=== PATIENT | male | born 1985 | race Caucasian/White ===

== ENCOUNTER 2016-09-11 16:51 | Inpatient (IN) | payer OTHER ==
[~2016-09-11] VITALS: Ht 182.9 cm; Wt 85.0 kg
[2016-09-11 16:55] VITALS: BP 131/84; PULSE 67; RESP 16; O2SAT 99
[2016-09-11] MEDS ORDERED: CLON0.5T PO (16:58)
[2016-09-11] MEDS ORDERED: TRAZ-115 PO (16:58)
[2016-09-11] MEDS ORDERED: LORA-303 PO (17:02)
[2016-09-11] MEDS ORDERED: PROP10TA8 PO (17:09)
--- NOTE | 2016-09-11 18:36 | ED.REPORT ---
HPI-Psychiatric Illness Date of Service Sep 11, 2016 ED Provider: Huang Reilly MD Patient is a 31 year old male with a history of anxiety and prior psychiatric admissions who is brought to the ED by his and father after the patient developed severe anxiety and withdrew from his family members 4-5 days ago. The patient has been nearly nonverbal since yesterday. The patient recently experienced several stressful life events. He worked 14 days straight, 12 hours per day, which ultimately caused the patient to quit his job. The patient was only sleeping 3 hours per day, not sleeping well. His grandfather also recently. His states that the patient is generally depressed and quiet. He intermittently begins shaking and has panic attacks. Patient was seen by his PCP Anna King today, who suggested that he be evaluated for psychiatric admission. See the note from his PCP. His reports a previous episode when he withdrew from Klonopin. The patient had such severe anxiety attack that caused him to be admitted to the hospital. She states that this was 6-7 years ago, for approximately a week. The patient did not have seizures when he withdrew from this medication. He is currently on Klonopin and Ativan. Patient currently has to be reminded to take his medications. The patient had not expressed thoughts of harming himself or others. Patient typically consumes 1-2 beers per day after work, but has not had any alcohol in the past 1-2 weeks. His reports a remote history of marijuana use, but denies any illicit drug use. He is a nonsmoker His reports decreased PO intake. Patient has not recently been on antibiotics to treat an infection. Nursing Notes Stated Complaint: ANXIETY, PSYCH EVAL Chief Complaint: Psychiatric Complaint Nursing Notes Reviewed: Yes (Bromium, Crunchfish) Allergies: Coded Allergies: No Known Allergies (Unverified , 09/11/16) Scheduled PRN Clonazepam (Klonopin) 0.5 Mg Tablet 0.5 MG PO BID PRN PRN For Anxiety Lorazepam (Ativan) 1 Mg Tablet 1 MG PO TID PRN PRN For Anxiety Propranolol HCl (Propranolol HCl) 10 Mg Tablet 10 MG PO TID PRN PRN For Anxiety General Time Seen by MD: 18:14 Chief Complaint Anxious, Bizarre behavior Hx Obtained From: Spouse, Other family... (Father) Arrived By: Walk-in Onset Occurred: 5 days ago Symptom Duration: Since onset Progression Since Onset: Gradually worsening Recent Healthcare: Recent doctor visit Similar Sx Previous: No Risk-Psychiatric Illness Suicide Risk Stratification RF Statements: Risk factors reviewed (not predictive) Past Medical History Past Medical History Anxiety prior psychiatric admission for andxiety due to Klonipin withdrawal (6-7 years ago) Past Surgical History Ankle surgery Smoking History Never Smoker Social History Alcohol Use: 1-3 per day (but currently not drinking alcohol) Drug Use: Denies drug use, THC (remote) Other Social History: Good social support, , Lives with children, Local resident Ambulatory Status Independent Review of Systems Unable to Obtain ROS Mental status (nonverbal, limited) Skin: Reports Diaphoresis Neurologic: Reports: Shaking, Denies: Seizure Psychiatric: Reports: Anxiety, Insomnia, Stress, Denies: Homicidal ideation, Suicidal ideation Physical Exam Physical Exam Notes: Initial Vital Signs Vital Signs (First) Date Time Temp Pulse Resp B/P Pulse Ox O2 Delivery O2 Flow Rate FiO2 09/11/16 16:55 36.4 67 16 131/84 99 Room Air Initial VS: Reviewed, Vital signs normal Head / Eyes: Atraumatic, Normocephalic, PERRL ENT: Conjunctiva normal, No scleral icterus Neck: Supple, Full range of motion Respiratory: Breath sounds normal, Clear to auscultation, No respiratory distress Cardiovascular: Regular rate & rhythm, Heart sounds normal Abdomen / GI: Soft, Non-tender Extremities: No swelling, No tenderness Skin: Warm, Dry, No cyanosis General/Constitutional: Awake, Alert Behavior: Negative: Appears intoxicated Appearance / Presentation: Negative: Intoxicated mute, does not answer questions, converse, or participate with a single word. All history is from his family, who do not indicate drug use. Neurologic: No motor deficits, No sensory deficits, CN II - XII intact Psychiatric: Not suicidal, Not homicidal looks around the room but makes poor eye contact looks at you when directed doess not appear intoxicated or in withdrawal Interpretation & Diagnostics Interpretation & Diagnostics: Urine tox dip: Positive for cocaine Lab Results Interpretation Result Diagram: 09/11/16 1845 09/11/16 1845 Test 09/11/16 18:01 09/11/16 18:45 Hold Urine Received (Received) White Blood Count 13.1th/mm3 (3.8-10.1) Red Blood Count 5.67mil/mm3 (4.40-5.80) Hemoglobin 16.6g/dL (13.8-17.2) Hematocrit 48.5% (41.0-50.0) Mean Corpuscular Volume 85.5fL (81-100) Mean Corpuscular Hemoglobin 29.3pg (27.0-35.0) Mean Corpuscular Hemoglobin Concent 34.2% (32.0-37.0) Red Cell Distribution Width 13.3% (12.3-15.4) Platelet Count 295bil/L (150-400) Neutrophils (%) (Auto) 73.2% (40-74) Lymphocytes (%) (Auto) 19.2% (14-46) Monocytes (%) (Auto) 6.8% (4-12) Eosinophils (%) (Auto) 0.3% (0-5) Basophils (%) (Auto) 0.2% (0-3) Sodium Level 141mEq/L (134-144) Potassium Level 4.1mEq/L (3.5-5.2) Chloride Level 103mEq/L (97-108) Carbon Dioxide Level 20mmol/L (18-29) Blood Urea Nitrogen 15mg/dL (6-20) Creatinine 0.78mg/dL (0.76-1.27) Estimat Glomerular Filtration Rate 124mL/min (>59) Glucose Level 86mg/dL (60-99) Calcium Level 10.3mg/dL (8.5-10.1) Total Bilirubin 0.7mg/dL (0.0-1.2) Aspartate Amino Transf (AST/SGOT) 27U/L (0-50) Alanine Aminotransferase (ALT/SGPT) 27U/L (0-44) Alkaline Phosphatase 82U/L (25-150) Total Protein 7.9g/dL (6.4-8.4) Albumin 4.8g/dL (3.4-5.0) Thyroid Stimulating Hormone (TSH) 1.230uIU/mL (0.450-4.500) Hold Noriega Top Tube Received (Received) Alcohols < 10mg/dL (0-10) Lab Results Interpretation: CBC marginal leukocytosis. CMP normal TSH normal Alcohol negative U tox positive for cocaine, patient and family deny cocaine, patient has no clinical findings of cocaine toxicity Re-Eval/Medical Decision Med Decision/Clinical Course This is a 31-year-old male presents with concern for depression and anxiety that point was come reviewed. He is referred in by primary care physician for hospitalization. The history comes from the patient's partner and family report the patient's been under multiple severe stressors in recent weeks. He has a history of some anxiety, and is on daily Klonopin but felt overwhelmed. He has had poor sleep, increasing anxiety, and today has essentially been mute and not willing to converse. He will nod yes and no, give a thumbs up or thumbs down, but does not converse normally. He denies suicidal or homicidal ideation, and the family does not think there is been any thoughts of self-harm. They are concerned given his worsening symptoms and vitamin that the PCPs recommendation. She will indeed would not medicate at all initially. Give thumbs up. Non- engaged in conversation at all. Does not appear toxic. Borderline catatonic but not truly catatonic as he would look around and participate. He has been eating and drinking. Again something sleeping well. He has no tachycardia, no dilated pupils, no signs of cocaine toxicity-urine tox was reportedly positive. Family patient deny use. The patient was initially kept for an STUDIO ASSOCIATE evaluation, the STUDIO ASSOCIATE is not able see the patient. The patient did become increasingly anxious as requested and received a dose of medication-Ativan in the department which did seem to help. ( Patient did receive some outpatient lorazepam as well to the PCP, but has been adequate to the cause less far. He felt better and started talking even communicating, so initially wanted to go home-but as we were discussing with some benefits and started withdrawal again. After further consideration reviewing options he and particularly his family are not comfortable with discharge numbersr without further STUDIO ASSOCIATE evaluation The symptoms receiving some Benadryl to help with sleep, has been held overnight to facilitate the formal STUDIO ASSOCIATE evaluation further disposition in the morning.) Source of Hx: Old records Re-Evaluation/Progress #1: Time of Eval: 22:57 Patient Status: Condition improved Re-Evaluation/Progress Note: Rechecked the pain. Patient is now speaking, though will still only speak a few sentences. His family is requesting for the patient to be discharged home. STUDIO ASSOCIATE has not yet evaluated the patient. After extensive conversation with his family, a plan was made for him to be discharged home. Re-Evaluation/Progress #2: Time of Eval: 23:26 Re-Evaluation/Progress Note: Patient's family no longer feels safe taking the patient home. He is now refusing to speak again. Patient will stay in the ED overnight and will be evaluated by STUDIO ASSOCIATE in the morning. Differential Diagnosis: Positive: Anxiety, Depression, Negative: Alcohol abuse, Homicidal, Noncompliance-medications, Schizophrenia , Suicidal Counseled Regarding: Diagnosis, Lab results Discharge & Departure Shift Change Sign-Out Discussed Complaint(s): Yes Laboratory Evaluation: Lab evaluation discussed Additonal Information: Awaiting STUDIO ASSOCIATE evaluation Impression: Primary Impression: Anxiety Additional Impressions: Acute situational disturbance Depression Depression Type: major depressive disorder Major depression recurrence: recurrent Active/Remission status: currently active Major depression episode severity: unspecified Qualified Code: F33.9 - Major depressive disorder, recurrent, unspecified Referrals: Anna Kendrick (PCP) Care Transferred to: Dr. Hawk Care Transferred at: 03:00 Amy Attestation Portions of this note were transcribed by Anjana Hay. I, Dr. Reilly personally performed the history, physical exam and medical decision-making; I reviewed and confirmed the accuracy of the information in the transcribed note. Signed by: Amy Iyer, 09/12/2016 0300 copies to: Anna Kendrick Matthew F MD Sep 11, 2016 18:36 Anjana Hay Sep 11, 2016 18:37
[2016-09-11 18:51] VITALS: BP 118/82; PULSE 88; RESP 20; O2SAT 96
[2016-09-11 18:55] LABS: BASOPHILS % (AUTO) 0.2 % (0-3); EOSINOPHILS % (AUTO) 0.3 % (0-5); MONOCYTES % (AUTO) 6.8 % (4-12); Mean Corpuscular Hemoglobin 29.3 pg (27.0-35.0); Mean Corpuscular Volume 85.5 fL (81-100); NEUTROPHILS % (AUTO) 73.2 % (40-74); Platelet Count 295 bil/L (150-400)
[2016-09-11 20:50] VITALS: BP 126/74; PULSE 64; RESP 20; O2SAT 99
[2016-09-11 23:18] VITALS: BP 126/74; PULSE 64; RESP 20; O2SAT 99
[2016-09-11] MEDS ORDERED: diphenhydrAMINE 25 mg Capsule PO ONE (23:30)
[2016-09-12 05:58] VITALS: BP 137/83; PULSE 75; O2SAT 100
[2016-09-12] MEDS ORDERED: LORazepam 1 mg Tablet PO ONE (09:35)
[2016-09-12] MEDS ORDERED: OLANZapine Zydis ODT 5 mg Tablet PO ONE (09:35)
--- NOTE | 2016-09-12 13:02 | NUR ---
DHMP at bedside Family at bedside Pt non verbal still, pt is making some eye contact. Pt appears to be aware of his family
--- NOTE | 2016-09-12 14:16 | DRSVH ---
PROCEDURE: CT BRAIN WITHOUT CONTRAST ([id number]) INDICATIONS: catatonic TECHNIQUE: Noncontrast 4.5 mm thick angled axial sections acquired from the foramen magnum to the vertex, with c oronal reformats. COMPARISON: None. FINDINGS: Image quality: Excellent. CSF spaces: Basal cisterns are patent. No extra-axial fluid collections. Ventricles are normal in size and shape. Brain: No midline shift. No intracranial masses or hemorrhage. Zarate-white matter interface is norm al. Skull and face: Calvarium and visualized facial bones are intact, without suspicious lesions. Sinuses: Visualized sinuses and mastoids are clear. IMPRESSION: No acute intracranial abnormality. Dictated by: Kenneth Cervantes M.D. on 09/12/2016 at 14:14 Approved by: Kenneth Cervantes M.D. on 09/12/2016 at 14:15
--- NOTE | 2016-09-12 14:42 | CONS ---
[address] [address] CONSULTATION REPORT PATIENT: YUSEF SNYDER : 1985 MR#: [id number] ADMIT: 09/11/2016 JOB ID: [id number] DATE OF SERVICE: 09/12/2016 PSYCHIATRIC CONSULTATION: IDENTIFICATION: The patient is a 31-year-old , white male. He has one son, 5. He works for [employer] in [place]. The family lives in [place]. REASON FOR CONSULT: Client coming to the ED highly anxious and mute for the past 48 hours. HISTORY OF PRESENT ILLNESS: The patient presents today for evaluation and treatment of near catatonic behavior. I met with him for a 60 minute evaluation and reviewed course and records kept by [facility]. I also interviewed his father and his . Client's main issue is anxiety. Co-occurring issues are work stress. The current condition is acute and has been developing over the past seven days. At present it is of a moderate intensity manifesting with bizarre symptoms of refusing to speak or write but will nod his head yes or no. He nods yes to having anxiety, no to psychotic review of systems. All the above was made worse by poor sleep and high pressure. Family reports he has been working 14 days in a row at 12 hours a day. He denies substance abuse but his urine tox was positive for cocaine. His and father report that he had a similar episode seven years ago when he stopped benzodiazepines, Ativan and Klonopin and he was also mute requiring inpatient hospitalization. At present, he is on both Klonopin 0.5 b.i.d., Ativan 1 t.i.d., and propranolol 10 t.i.d. He is currently presenting with impaired judgment, severe cognitive impairment, insight and coping. It is very difficult to get a full history both while talking to him in the ED on a gurney and client only able to nod yes or no to my questions. He did deny suicidal ideation, plan or intent. He did deny psychiatric review of systems for trauma, substance abuse or audra. PAST MEDICAL HISTORY: MEDICATIONS: 1. Propranolol 10 t.i.d. 2. Klonopin 0.5 b.i.d. 3. Ativan 1 t.i.d. ALLERGIES: None. ILLNESSES: None. FAMILY MEDICAL HISTORY: Brother after overdosing on methadone after becoming addicted to oxycodone and Suboxone. He has one older sister. The family has a history of non-Hodgkin lymphoma. PAST PSYCHIATRIC HISTORY: Client stated he was admitted one time seven years ago for a similar anxiety episode. He stated this by raising his thumb up or putting his thumb down. PAST PSYCHOSOCIAL HISTORY: Client born him in [place], [place], graduated from high school and attended college. He was in the [employer] for three years with an honorable discharge. HISTORY OF TRAUMA: Client denies. Nonsmoker. Denies drug and alcohol use. Urine tox positive for cocaine. SUICIDAL IDEATION/SUICIDE ATTEMPTS: None. RELATIONSHIP: for the past four years. MORAVIAN: Unknown. LEGAL HISTORY: Unknown. EXAM: Vital signs: 131/84, pulse 67, respirations 16, temperature 96.4. HEENT: Normocephalic. Pupils equal, round, reactive to light and accommodation. Client resting calmly in a hospital bed. LABORATORIES: Liver, electrolytes, thyroid normal. UA normal. UDS positive for cocaine. CBC positive for elevated WBC of 13. MENTAL STATUS: Client neatly dressed, appearing slightly diaphoretic with odd eye contact. Behavior was aloof, detached. Speech was mute. Mood was anxious. Affect was congruent. Thought process: Client is unable to relate a coherent history. He did not appear to be responding to internal stimuli. Thought content: Client is mute but did deny suicidal ideation or auditory hallucinations. Client was oriented to person, place and date. Unable to test memory and attention. Insight and judgment are poor. Impulse control highly contained, yet rigid. Appears to be having a difficult time handling impulses of fear, anger and guilt. Reality testing unable to assess. Competence to handle current stressors is currently being overwhelmed. 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 His urine tox is positive for cocaine although he denies any kind of illicit substance use. He is on two different kinds of benzodiazepines, Klonopin and Ativan for unclear reasons. His family noted a long-term history of generalized anxiety but only one previous episode of presenting as mute. He is currently presenting with impaired judgment, severe cognitive impairment, insight and coping. He is willing to communicate by doing thumbs up or thumbs down but will not talk and will not write. He has a supportive family. They stated he has a good work history and has been a loyal and father and son. They are hoping that we can provide him safety and treatment. DIAGNOSIS: AXIS I 1. Psychosis unspecified. 2. Rule out major depressive disorder. 3. Rule out panic disorder. 4. Rule out substance induced mood disorder, cocaine. AXIS II Defer. AXIS III None. AXIS IV Moderate. AXIS V Current global assessment of functioning equal to 25. PLAN: 1-Recommend ED staff check a CT. Repeat UA. 2-He was evaluated by the [facility] designated mental health professional who did not feel he met criteria for usp. I believe he does meet criteria and him concerned he is not a good puneet voluntary. At this moment both he and his and his father are agreeing to the voluntary admission. I will Admit to the floor on a voluntary basis if he is medically cleared and continues to be willing to engage in treatment (Client did agree to come and made gestures with his thumbs that he would be willing to come as a voluntary patient) 3-Due to the recent history of catatonia and relatively high doses of benzodiazepines, for the time being, I would restart client on Ativan 1 mg t.i.d. Client has already received three doses of Zyprexa at 5 mg per day. Would hold off on neuroleptics today and I will reevaluate him on the psychiatry unit in the morning. Thank you for a very interesting consult. CONOR
--- NOTE | 2016-09-12 16:20 | NUR ---
Nurses Admission Note 31 year old voluntary male certified X 5 days by the A. Patient has had increasing anxiety with a poor appetite and minimal sleep after a period of working 14 days straight 12 hour shifts resulting in him quitting his job. Patient has a history of anxiety disorders and has been prescribed benzodiazepines to control his symptoms. Patient arrived on the unit non- verbal but cooperative by using thumbs up/down in response to admission questions. He denied auditory hallucinations,feelings of self harm. Patient was oriented to the unit, policy and procedures,will be monitored q 15min. checks for safety and support. Addendum: 09/12/16 at 2055 by MARIA FERNANDA CONWAY RN Nurses Note Medication Patient refused all HS medications with an unblinking stare and thumbs down gesture. Will continue to monitor behaviors.
[2016-09-12] MEDS ORDERED: Alum-Mag Hydrox-Simeth 30 mL Suspension PO PRN (18:40)
[2016-09-12] MEDS ORDERED: Magnesium Hydroxide 10 mL Oral Concentration PO PRN (18:40)
[2016-09-12 19:26] VITALS: BP 125/78; PULSE 76; RESP 16
[2016-09-12] MEDS: LORazepam 1 mg Tablet PO SCH ×2 (20:30→20:46)
[2016-09-13] MEDS: LORazepam 1 mg Tablet PO PRN ×2 (00:22→12:29)
[2016-09-13] MEDS: LORazepam 1 mg Tablet PO SCH ×4 (00:22→12:30)
--- NOTE | 2016-09-13 05:42 | NUR ---
Nursing Note [employer] 7pm to 7am Pt started pacing at around med pass time. Came to the med window, nonverbal, staring with fixed gaze, unable to make request known, unresponsive to questions. Pt pointed to the door behind him as if he wanted to leave the unit and becoming increasingly frustrated. Pt eventually went to his room to sleep. He woke up at approx 0230, clearly distraught. Pt offered HS meds which he had declined earlier. Nodded that he would take them, however after they were pulled he declined. Pt appeared to be internally preoccupied. Pt's affect flat, mood neutral. Pt is guarded and suspicious. He is voluntary but is refusing medication. Dr. Knapp aware.
[2016-09-13 11:38] VITALS: BP 138/93; PULSE 108; RESP 16
[2016-09-13] MEDS ORDERED: LORazepam 2 mg Tablet PO ONE (12:50)
--- NOTE | 2016-09-13 14:01 | PCM.HPPSYC ---
Mental Health [facility] Date of Service Sep 13, 2016 Admission Date/Time Sep 12, 2016 at 16:12 Reason for Admission Client coming to the ED highly anxious and mute for the past 48 hours. Admission Status: Voluntary Source of Information: Patient Interview, Chart Review, Observation History of Present Illness The patient presents today for evaluation and treatment of near catatonic behavior. I met with him for a 60 minute evaluation and reviewed course and records kept by Alessio Scales. I also interviewed his father and his . Client's main issue is anxiety. Co-occurring issues are work stress. The current condition is acute and has been developing over the past seven days. At present it is of a moderate intensity manifesting with bizarre symptoms of refusing to speak or write but will nod his head yes or no. He nods yes to having anxiety, no to psychotic review of systems. All the above was made worse by poor sleep and high pressure. Family reports he has been working 14 days in a row at 12 hours a day. He denies substance abuse but his urine tox was positive for cocaine. His and father report that he had a similar episode seven years ago when he stopped benzodiazepines, Ativan and Klonopin and he was also mute requiring inpatient hospitalization. At present, he is on both Klonopin 0.5 b.i.d., Ativan 1 t.i.d., and propranolol 10 t.i.d. He is currently presenting with impaired judgment, severe cognitive impairment, insight and coping. It is very difficult to get a full history both while talking to him in the ED on a gurney and client only able to nod yes or no to my questions. He did deny suicidal ideation, plan or intent. He did deny psychiatric review of systems for trauma, substance abuse or audra. Presenting Symptoms: Mood (Weeks), Depression (Weeks), with Psychotic Features (Days), Anxiety (Months), Panic (Weeks), Generalized (Months) Vegetative Functioning: Sleep (Decreased), Appetite (Decreased), Energy (Normal ) Allergies Coded Allergies: No Known Allergies (Unverified , 09/11/16) Home Medications Scheduled PRN Clonazepam (Klonopin) 0.5 Mg Tablet 0.5 MG PO BID PRN PRN For Anxiety Lorazepam (Ativan) 1 Mg Tablet 1 MG PO TID PRN PRN For Anxiety Propranolol HCl (Propranolol HCl) 10 Mg Tablet 10 MG PO TID PRN PRN For Anxiety Discontinued Medications Trazodone (Trazodone) 50 Mg Tablet Unknown Dose PO HS Psychiatric Treatment History Age at onset: Estimated number of hospitalizations since onset of illness: What medications/treatments have been effective: What medications/treatments have been ineffective: Outpatient Treatment History: Psychological History: Addictions (client has had addiction issues related to benzodiazepines.), Depression Fam Hx Mental Health Disorder: Other (Brother of overdose on methadone) Past Suicide Attempts No Relevant History None Hx non-suicidal Self-Injury No Relevant History Relevant History Details: Hx Violence Towards Other No Past Medical History Past Medical/Surgical History Current and Past Current/Past: No medical problems Problem with Elimination: No Sexually Active: Yes Hx Surgeries: No Past Social History Family: , Children Living Arrangement: with Family Occupation: care coordination manager at [employer] Patient Education Level: Graduated Patient Service: Type of Discharge (Honorable Discharge) Patient Funding Source: Employed Review of Systems Patient unable to cooperate with the review of systems other than to raise his thumb yes or no Constitutional: No: Chills, Fever, Malaise, Other, Sweats, Weakness Cardiovascular: Denies: Chest Pain, Edema, Lt Headedness, Orthopnea, Other, Palpitations, Paroxysmal Noc. Dyspnea Respiratory: Denies: Cough, Hemoptysis, Other, Pleuritic Chest Pain, SOB with Exertion, Shortness of Breath, Sputum, Wheezing Gastrointestinal: Denies: Abdominal Pain, Change in Appetite, Constipation, Diarrhea, Heartburn, Hematochezia, Melena, Nausea, Other, Use of Laxatives, Vomiting Genitourinary: Denies: Anuria, Change in Frequency, Dysuria, Hematuria, Incontinence, Nocturia, Other, Retention Mental Status Exam Vital Signs Vital Signs Date Time Temp Pulse Resp B/P Pulse Ox O2 Delivery O2 Flow Rate FiO2 09/13/16 11:38 36.5 108 16 138/93 Appearance: Neat/well groomed Attitude: Guarded, Uncooperative Behavior: Overtly anxious Affect: Labile Mood: Anxious, Fearful Thought Process/Associations: Other (patient mute today refusing to even do thumbs-up or thumbs down as he had in the ER yesterday) Speech Production: Muter Thought Content: Other (patient mute) Delusions: Paranoid (Endorses) Consciousness: Hyper-vigilant Orientation: Unable to assess Memory: Untestable Estimate Intellectual Function: Unable to assess Insight: Unable to assess Judgement: Unable to assess Result Diagram: 09/11/16184409/11/161844 Mental Health Plan The patient is 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 His urine tox is positive for cocaine although he denies any kind of illicit substance use. He is on two different kinds of benzodiazepines, Klonopin and Ativan for unclear reasons. His family noted a long-term history of generalized anxiety but only one previous episode of presenting as mute. He is currently presenting with impaired judgment, severe cognitive impairment, poor insight and coping. Thursday in the ER he was willing to communicate by doing thumbs up or thumbs down but would not talk and will not write. Today he is refusing to communicate with thumbs up or thumbs down. He appeared highly agitated and anxious. He called 911 from the unit twice in and yelled help into the phone. He became agitated and was pacing on the floor screaming Incoherently an hour after my evaluation. The nurses were able to coax him into taking some Ativan but he is refusing Antipsychotics or scheduled medications. He has a supportive family. They stated he has a good work history and has been a loyal and father and son. They are hoping that we can provide him safety and treatment. I do not believe the patient is a good puneet voluntary. I ask for it county designated mental health evaluation this morning, It was done in the patient is currently on a 72 hour involuntary treatment hold. I asked Dr. Fountain from internal medicine to consult Regarding a medication override. He is going to see the patient this afternoon. [place] DIAGNOSIS: AXIS I 1. Psychosis unspecified. 2. Rule out major depressive disorder. 3. Rule out panic disorder. 4. Rule out substance induced mood disorder, cocaine. AXIS II Defer. AXIS III None. AXIS IV Moderate. AXIS V Current global assessment of functioning equal to 25. Treatments Patient is being provided with a high degree of safety through the structure and active adult engagement. We will focus on developing improved coping skills, reality based thinking and identifying stressors that may have led to current episode. We will attempt to: Integrate into therapeutic groups, milieu and individual therapy. Maintain in a closely monitored and structured unit Provide low-stimulation environment Obtain collateral data to assist in treatment planning Assess degree of lability of affect and impulse control Complete safety plan Decrease frequency of relapse and need for re-hospitalization Establish a consistent sleep pattern Medication effective in stabilization of mood and/or thought process Reduce the risk of imminent harm to self and/or others by providing a safe environment Tolerates medication without side effects Patient will be on the following psychiatric medications: Ativan 2 mg 3 times a day Recommend Seroquel 100 mg at bedtime. Patient currently refusing. Education: Educate patient about recreational drug use as an etiology Address patient's legal status Patient is on a 72 hour involuntary treatment hold. Patient will be given the opportunity to talk to his office machine inspector Thursday and the advertising account manager Thursday Disposition: Luis Pryor MD Sep 13, 2016 14:01
[2016-09-13] MEDS ORDERED: LORazepam 1 mg Tablet PO SCH (14:30)
[2016-09-13] MEDS: LORazepam 2 mg Tablet PO SCH ×2 (15:33→20:28)
--- NOTE | 2016-09-13 16:46 | NUR ---
Nursing Note [id number] S:"Help", "Help", "AHHH", "AHHH!! O: Patient continues to be non verbal. This morning he was barely able to communicate with thumbs up and thumbs down, but using this form of communication rabidly deteriorated throughout the morning. When offered AM Ativan, patient backed away from staff looking fearful. Patient was back and forth from dining room to hallway and would at times, director electrical engineering hallway rocking from foot to foot. At lunch time, patient was sitting in dining room and yelled out loudly-effectively scattering fellow patients. Patient came into the med room and was offered anti anxiety medications. Patient drank water, but would not take meds. Patient sat on chair and kept reaching for/pulling hand back from phone. Staff offered to call his family. Patients father was contacted, patient listened for a minute, extended phone almost back to precision agriculture specialist, then to ear, repeat, repeat, finally hanging up phone. Patient stood, sat, stood, becoming more agitated. Picked up phone, dialing 911 and yelled, "Help", "Help",then " Ahhh, over and over. Patient finally took medications and sat on roller chair. Patient unable to follow directions to room. Patient rolled to room on chair and transferred self to bed. Stood and started toward door several times, but was redirected to bed. Sat on floor for a time, then back to bed and eventually laid down and finally slept. A: Patient anxious, unable to communicate verbally other than brief outburst to 911. Flat affect. Unpredictable and possibly volatile. P: Monitor for response to treatment. Q 15 min checks for safety. Follow plan of care. Addendum: 09/13/16 at 1740 by CYNDI KHALIL RN Patient verbally said "thank you" to [facility] for dinner.
--- NOTE | 2016-09-13 17:03 | NUR ---
Underground Roof Bolter./ c.m. S./O.: tried to meet with pt. during the day. Pt. became agitated late morning and he was screaming on the top of his lungs. It was hard to calm pt. down. Security was called because pt. wasn't cooperating and peers were afraid of pt. Pt. was in bed after his last screaming episode unresponsive. Later after lunch DCR came and detained pt. for 72 hrs as GD. Pt.'s father and pt.'s came to visit pt. in the middle of afternoon and pt. got up and went to [email or web address] room with them. Justice [employer] met with pt. and his family in that room. Pt. confirmed by his hand gesture that he felt very anxious. He refused to talk but used his thumb to answer on a few questions. Pt. is aware now about his RIA status. Family was upset about it but understood a reason for that. Pt.'s father reassured pt. that he would have his own private crnp. Justice Of [employer] Peace explained to family RIA rules and encouraged pt. to cooperate with his treatment here. Pt. agreed to take meds, to ask for help and to write his requests or answers if necessary. A.: pt. is isolative, uncooperative, mute, has a flat affect, looks internally preoccupied and fearful. P.: monitor behavior, encourage pt. to take meds and to communicate; follow care plan.
--- NOTE | 2016-09-13 17:38 | NUR ---
Observations 0700 to 1900 Pt was not able to maintain behavioral control during the shift. During the morning pt was trembling, pacing, non verbal, visibly agitated. Pt paced hallways and sat on floor for morning. Pt ate breakfast but could not interact with anybody. Pt sat down for lunch and without a known stimuli pt screamed unintelligibly. Other pts were frightened. Staff ushered pt toward med room where pt began to scream repeatedly. Staff attempted to get pts father on the phone to help calmed down pt, but pt called 911 on screamed 'help.' Staff took pt to room and stayed with him until he laid down in bed. Pt fell asleep in afternoon, and woke up when father and came to visit. Pt remained nonverbal but seemed noticeably less agitated after waking up. Pt made eye contact and said 'thank you' to designer writer at dinner time. Pt ate 90-100% of breakfast and dinner and 20% of lunch. Pt was observed every 15 minutes as ordered.
--- NOTE | 2016-09-14 05:07 | NUR ---
Lead Web Application Developer 7pm to 7am Pt was calm at start of shift and was reported to have had a good visit with family. Pt remained in control of behavior for duration of shift. Came to med window and made a sleeping hand gesture and nodded acknowledging he wanted his night time meds. Pt walked away from the med window multiple times before taking his medication po with much ambivalence. Pt reached for the meds and then pulled hand back, and looked up at the ceiling as if he was listening to someone. When asked if pt was hearing voices he knotted his head yes. Pt eventually took meds with much prompting. He took scheduled HS meds along with Inderal 2omg prn for anxiety with good relief. Pt slept through the night uninterrupted. Monitored q 15 minutes for safety, location and accountability.
[2016-09-14] MEDS: LORazepam 2 mg Tablet PO SCH ×3 (07:18→20:32)
[2016-09-14 08:16] VITALS: BP 158/104; PULSE 112; RESP 18
--- NOTE | 2016-09-14 10:50 | PCM.PNPSY ---
Subjective Date of Service Sep 14, 2016 Subjective I spent 30 minutes both reviewing his treatment plan and providing supportive and educational psychotherapy. I spent less than 50% of the time counseling the patient as the patient was only able to respond with turning his thumbs up or down. He is been a nearly completely mute except for 24 hours ago when he called 911 twice from the unit and said help. Then he did a primal scream before staff was able to redirect him. I reviewed the treatment plan with the patient and discussed options available including the potential risks, benefits and side effects. Slade reports by raising his thumb up that he is not in agreement with taking Ativan and Seroquel for his condition. The Staff reports that he has been active and but is not able to participate well in one-to-one unit and group activities. He slept 8 hours. He appeared markedly less agitated today and more alert. He denies medication side effects. Patient was not able to identify his medications or what they were used to treat. Current Medications Current Medications Lorazepam 1 mg Q4 PRN PO Last administered on 09/13/16 12:29; Admin Dose 1 MG; Start 09/12/16 at 18:45 Lorazepam 1 mg TID PO Last administered on 09/13/16 12:30; Admin Dose 1 MG; Start 09/12/16 at 20:30; Stop 09/13/16 at 13:13; Status DC Lorazepam 2 mg TID PO Last administered on 09/14/16 07:18; Admin Dose 2 MG; Start 09/13/16 at 14:30 Nicotine 1 patch DAILY TOPICAL Last administered on 09/14/16 07:19; Admin Dose 1 PATCH; Start 09/13/16 at 18:30 Propranolol HCl 20 mg TID PRN PO Last administered on 09/13/16 20:28; Admin Dose 20 MG; Start 09/13/16 at 13:25 Quetiapine Fumarate 100 mg HS PO Last administered on 09/13/16 20:28; Admin Dose 100 MG; Start 09/13/16 at 21:00 Mental Status Exam Vital Signs Vital Signs Date Time Temp Pulse Resp B/P Pulse Ox O2 Delivery O2 Flow Rate FiO2 09/14/16 08:16 36.5 112 18 158/104 Appearance: Neat/well groomed Attitude: Guarded, Uncooperative Behavior: Overtly anxious Affect: Blunted, Flat Mood: Anxious Thought Process/Associations: Other (patient mute today but will gesture with thumbs-up or thumbs down as he had in the ER ) Speech Production: Muter Thought Content: Other (patient mute) Delusions: Paranoid (Endorses) Consciousness: Hyper-vigilant Orientation: Unable to assess Memory: Untestable Estimate Intellectual Function: Unable to assess Insight: Unable to assess Judgement: Unable to assess Result Diagram: 09/11/16184409/11/161844 Mental Health Plan The patient is 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 His urine tox is positive for cocaine although he denies any kind of illicit substance use. He is on two different kinds of benzodiazepines, Klonopin and Ativan for unclear reasons. His family noted a long-term history of generalized anxiety but only one previous episode of presenting as mute. He is currently presenting with impaired judgment, severe cognitive impairment, poor insight and coping. Thursday in the ER he was willing to communicate by doing thumbs up or thumbs down but would not talk and will not write. Today he is refusing to communicate with thumbs up or thumbs down. He appeared highly agitated and anxious. He called 911 from the unit twice in and yelled help into the phone. He became agitated and was pacing on the floor screaming Incoherently an hour after my evaluation. The nurses were able to coax him into taking some Ativan but he is refusing Antipsychotics or scheduled medications. He has a supportive family. They stated he has a good work history and has been a loyal and father and son. They are hoping that we can provide him safety and treatment. I do not believe the patient is a good puneet voluntary. I ask for it county designated mental health evaluation this morning, It was done in the patient is currently on a 72 hour involuntary treatment hold. I asked Dr. Fountain from internal medicine to consult Regarding a medication override. He is going to see the patient this afternoon. Slade was willing to take Seroquel last night and continues on relatively high doses of Ativan. He seems markedly improved in terms of Mood stability. He remains mute to any type of conversation or attempts to engage. [place] DIAGNOSIS: AXIS I 1. Psychosis unspecified. 2. Rule out major depressive disorder. 3. Rule out panic disorder. 4. Rule out substance induced mood disorder, cocaine. AXIS II Defer. AXIS III None. AXIS IV Moderate. AXIS V Current global assessment of functioning equal to 25. Treatments Patient is being provided with a high degree of safety through the structure and active adult engagement. We will focus on developing improved coping skills, reality based thinking and identifying stressors that may have led to current episode. We will attempt to: Integrate into therapeutic groups, milieu and individual therapy. Maintain in a closely monitored and structured unit Provide low-stimulation environment Obtain collateral data to assist in treatment planning Assess degree of lability of affect and impulse control Complete safety plan Decrease frequency of relapse and need for re-hospitalization Establish a consistent sleep pattern Medication effective in stabilization of mood and/or thought process Reduce the risk of imminent harm to self and/or others by providing a safe environment Tolerates medication without side effects Patient will be on the following psychiatric medications: Ativan 2 mg 3 times a day Recommend Seroquel 100 mg at bedtime. Patient currently refusing. Education: Educate patient about recreational drug use as an etiology Address patient's legal status Patient is on a 72 hour involuntary treatment hold. Patient will be given the opportunity to talk to his teller manager Thursday and the process manager Thursday Disposition: Luis Pryor MD Sep 14, 2016 10:50
--- NOTE | 2016-09-14 11:57 | NUR ---
Agency Director./ c.m. S./O.: met with pt. to work on his Treatment plan and goals. Pt. was sitting in a TV area. He was mute. He was able to make a gesture with his hand and a nod with his head as an answer on quality analyst/technical writer's question. He confirmed having a lot of stress recently. He confirmed having a lot of anxiety. He felt safe here. He denied SI/HI. He had a difficult time signing his Treatment plan and goals. It was hard for him to make his mind. Chief Architect told pt. that his father called and wanted to know about pt.'s progress. Chief Architect didn't want to speak with pt.'s father without pt. permission to do so. Pt. confirmed that quality analyst/technical writer could tell his father about signing his paper. A.: pt. is cooperative, mute, has a flat affect and looks anxious. He has a hard time making decisions. He looks internally preoccupied. P.: monitor behavior, continue encouraging pt. to take meds, follow care plan.
[2016-09-14] MEDS: LORazepam 1 mg Tablet PO PRN (12:24)
--- NOTE | 2016-09-14 13:06 | NUR ---
Nursing Note [id number] Behavior S/O: Pt pleasant with staff & peers. Pt out in milieu. Pt attended community meeting in the morning. Pt continues to be non-verbal, making only gestures to indicate how he is doing. No verbal communication with staff or peers. When approached with questions about how he feels, he gives a thumbs up. Pt took am medications hesitantly. Pt has good appetite. B/P elevated at 158/104. A: Pt unable/unwilling to communicate inner emotions with staff. P: Provide supportive environment. Monitor medications & effects. Addendum: 09/14/16 at 1424 by MARLEEN OCONNOR RN Pt seen in room & piano room holding his hands in front of him mouthing words without sound. Appears to be responding to internal stimuli.
--- NOTE | 2016-09-14 18:05 | NUR ---
Observations 0900 to 2130 Pt affect and mood was flat, guarded, mute and anxious. Pt eye contact was ok and speech was poor. Pt continues to not say much, but he has talked a little bit today. Pt was out of his room most of the shift. Pt and Dad came to visit and it appeared to go well. Pt ate 100% of his meals. Pt ate snack. Pt maintained behavior throughout the shift. Pt attended group and unit activities. Pt attended community meeting and set daily goal. Pt was minimally social with staff and select peers. Pt was pleasant, polite and cooperative. Pt did some posturing in the hallway at times. Pt stood staring at ching and pictures in hallway. Pt was observed every 15 minutes throughout the shift as ordered.
--- NOTE | 2016-09-14 21:49 | NUR ---
Nurses Note Evening Patient has been more interactive today than yesterday. His eye contact is improved with periods of spontaneous affect with verbal one word responses. He has accepted his medications but remains hesitant requiring quiet encouragement and time at bedtime. He was observed speaking with peers with one word responses and has been in the day room for meals and TV. Patient has continued with periods of standing in the hallway staring at the wall as if responding to internal stimuli. Will assess medication efficacy,alert to side effects and maintain q 15min. checks for safety and support. Addendum: 09/14/16 at 2155 by MARIA FERNANDA CONWAY RN Amended: Links added.
--- NOTE | 2016-09-15 01:27 | NUR ---
Observations 1900 to 0700 Pt affect is flat. Pt spent the evening out i the DR but isolated to himself for the most part. pt did attend wrap up group. Pt went to bed after group and has remained there ever since but has not yet fallen asleep. Pt was observed every 15 minutes through the night as directed.
[2016-09-15] MEDS: LORazepam 1 mg Tablet PO PRN ×2 (01:43→12:58)
--- NOTE | 2016-09-15 06:06 | NUR ---
Nursing Note Road Marker 11pm to 7am Pt awake at 0030, sitting on bed looking out of the window where he remained for several hours. Pt seemed internally preoccupied but when asked if hearing voices he shook his head no. He remains mute expressing himself with head nods and thumbs up/down. Seen rubbing his neck for an extended period of time but denies pain. Offered pt ativan prn. reached for meds and water but drank water and handed meds back. Later came up to med window and asked for " My medication". Pt given ativan 1mg, inderal 20mg with good relief. Pt back to sleep at 0330 and remained asleep the rest of the night. Addendum: 09/15/16 at 0620 by JOJO GARCIA RN Amended: Links added.
[2016-09-15] MEDS: LORazepam 2 mg Tablet PO SCH ×4 (08:43→20:43)
[2016-09-15 10:10] VITALS: BP 151/104; PULSE 108; RESP 16
--- NOTE | 2016-09-15 13:07 | NUR ---
Nursing Note [id number] Behavior, Mood S/O: Pt ate 60% of breakfast & 75% of lunch. B/P 151/104. Pt rated anxiety at a "5" on a scale of 1-10/10 the worst. He appears very anxious (i.e. eyes are looking around furtively, pt having difficulty focusing, pt sighing). Ativan 1 mg given at 1300. Pt unable/unwilling to vocalize answers to anyone. When asked if he was doing better or worse than yesterday, he gave me a thumbs up. Pt seen mouthing words to himself. A: Pt appears unchanged from yesterday even though he gestures that he is feeling better. P: Provide supportive environment. Monitor medications & effects.
--- NOTE | 2016-09-15 16:50 | PCM.PNPSY ---
Subjective Date of Service Sep 15, 2016 Subjective The patient did not speak to the treatment team using words but used hand signs , up, down, and in the middle to express his mood and response to questions. He was unable to say why he was unable to speak but was noted to deep breath deliberately several times during the interview as well as looking towards the ceiling with his eyes fluttering. He denied feeling that others were controlling his thoughts or are preventing him from speaking. He denied hallucinations. Denied suicidal or homicidal thoughts. He denied thought control or ideas of reference. The patient was agreeable to increasing quetiapine and on follow-up noted that he felt more relaxed. He also was agreeable to increasing his evening quetiapine dose. He denied any side effects from medications or medical issues. Sleep: 4+ hours per staff Appetite: Eating meals Suicidal and homicidal ideation: Denies Auditory hallucinations/Visual hallucinations: Denies Other Psychotic Symptoms: As above and mute Anxiety: Unable to assess Depression: Unable to assess Current Medications Current Medications Nicotine 1 patch DAILY TOPICAL Last administered on 09/15/16 08:47; Admin Dose 1 PATCH; Start 09/13/16 at 18:30 Quetiapine Fumarate 100 mg DAILY PO Last administered on 09/15/16 14:02; Admin Dose 100 MG; Start 09/15/16 at 13:25 Quetiapine Fumarate 100 mg HS PO Last administered on 09/14/16 20:32; Admin Dose 100 MG; Start 09/13/16 at 21:00; Stop 09/15/16 at 15:11; Status DC Mental Status Exam Vital Signs Vital Signs Date Time Temp Pulse Resp B/P Pulse Ox O2 Delivery O2 Flow Rate FiO2 09/15/16 10:10 36.3 108 16 151/104 Appearance: Neat/well groomed Attitude: Guarded, Uncooperative Behavior: Overtly anxious Affect: Blunted, Flat Mood: Anxious Thought Process/Associations: Other (patient mute today but will gesture with thumbs-up or thumbs down or in the middle) Speech Production: Muter Thought Content: Other (patient mute) Danger to Self/Suicidal Ideati: None Danger to Others: None Delusions: Paranoid (Appears to be as unable to say why he cannot speak and appears quite guarded.) Hallucinations: Auditory (Denies), Visual (Denies) Consciousness: Hyper-vigilant Orientation: Unable to assess Memory: Untestable Estimate Intellectual Function: Unable to assess Insight: Unable to assess Judgement: Unable to assess Result Diagram: 09/11/16184409/11/161844 Mental Health Plan The patient is 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 His urine tox wa positive for cocaine although he denies any kind of illicit substance use. He is on two different kinds of benzodiazepines, Klonopin and Ativan for unclear reasons. His family noted a long-term history of generalized anxiety but only one previous episode of presenting as mute. He is currently presenting with impaired judgment, severe cognitive impairment, poor insight and coping. Thursday in the ER he was willing to communicate by doing thumbs up or thumbs down but would not talk nor write. Following admission , he began refusing to communicate with thumbs up or thumbs down. He appeared highly agitated and anxious and had called 911 from the unit twice and yelled help into the phone. He became agitated and was pacing on the floor screaming incoherently, and was refusing medications and was subsequently detained. Since being detained, he has been medication adherence and is denying side effects to current medications. The patient appears to be responding to some form of internal stimuli and appears religiously preoccupied. He is agreeable to titration of medication. [place] AXIS I 1. Psychosis unspecified. 2. Rule out major depressive disorder. 3. Rule out panic disorder. 4. Rule out substance induced mood disorder, cocaine. 5. Cocaine use disorder AXIS II Defer. AXIS III None. AXIS IV Moderate. AXIS V Current global assessment of functioning equal to 25. Treatments 1. The patient is admitted to the inpatient unit and will be provided a safe and secure environment. 2. The patient is denying current active suicidality and is not in need of a one-to-one at this time. 3. The patient is encouraged to participate with group and milieu activities. 4. The patient will be seen by the treatment team on a daily basis to assess symptoms, side effects and response to treatment. 5. Quetiapine will be increased to 100 mg daily and 200 mg at bedtime. 6. The patient may benefit from an antidepressant though it is difficult to assess at this time. 7. Once stabilized on quetiapine will need to taper his benzodiazepine use. 8. Anticipated length of stay is 7-10 days. Marbin Walsh MD Sep 15, 2016 16:50
--- NOTE | 2016-09-15 17:55 | NUR ---
Observations 0900 to 0 Pt affect and mood continues to be flat, guarded, mute and anxious. Pt eye contact was ok and speech was poor. Pt continues to not say much, lips junior quiver but doesn't say anything. Pt will communicate by making hand gestures. Pt was out of his room most of the shift but is currently taking a nap. Pt Dad came to visit and it appeared to go well. Pt attended meals ate 100% of his meals. Pt ate snack. Pt maintained behavior throughout the shift. Pt attended community meeting and set daily goal, to have a good day. Pt was pleasant, polite and cooperative. Pt walked hallway and did some posturing in the hallway at times. Pt stood staring at ching and pictures in hallway. Pt was observed every 15 minutes throughout the shift as ordered.
--- NOTE | 2016-09-15 18:59 | NUR ---
[id number]. S/O: Pt continuing to be non verbal and respond with yes or no hand gestures to staff, offered pen and paper for more elaboration refused offer, pt took 1mg of ativan at 1300 and seroquel 100mg at 1400, refused offered 1420 sheduled 2 mg ativan, then did come to med rm to ask for this med, the changed mind when offered, indicated he was going to go to sleep and returned to bed noted to be sleeping. Pt noted to lie in bed with head covered, would remove covers when asked. Pt out to eat meals not interacting with others. Pt visited by father and then also spouse and was not verbal with them. Continued hand gestures. P:CNCP Addendum: 09/15/16 at 2128 by FAVIO PHILLIPS RN Pt took sheduled seroquel 200mg and checked for cheeking this med after refused sheduled 2 mg of ativan and threw it in trash. Pt appeared to have taken the seroquel appropriately and would not explain reasons for refusal used same downward pointing thumb gesture.
--- NOTE | 2016-09-16 03:12 | NUR ---
Observations 1900 to 0700 Pt affect is flat. Pt spent the evening out in the DR but isolated to himself for the most part. Pt had two visitors last night. Pt was observed on a few occasions talking to himself in his room. Pt first appeared asleep at 01:45 and was observed every 15 minutes through the night as directed.
--- NOTE | 2016-09-16 04:27 | NUR ---
Sleep 11p-7a Pt restless pacing between his room and the hallway. Avoidant eye contact looking away and at the ground when passing by staff. He did come to the nursing station and rubbed his stomach and just stated the word "Ativan" then stood in front of the med room door. This nurse took his action to mean he wanted to be given Ativan. Ativan offered to patient which he took out of the med cup and then placed on the ledge of the door. He then proceeded to walk away and ignored this nurse when calling his name. Offered prn Ativan wasted with no further requests for medication made by the patient. Pt noted to be asleep by 0145 with no further distress or awakening noted per protocol checks. Total sleep this shift over 3 hours. Will continue to monitor behavior, mood and sleep cycle through the night. Addendum: 09/16/16 at 0444 by DAYSI TENORIO RN [facility] noted that during checks patient had been rapidly talking to himself in his room but would stop as soon as staff was noticed by the patient. The [facility]HA reported that it almost seemed like the patient was praying and heard to be making statements to self about relationships. Addendum: 09/16/16 at 0553 by DAYSI TENORIO RN Pt awoke at 0500 appearing tremulous and diaphoretic. VS taken BP144/99, P 106, afebrile, blood glucose 217. Pt not a reported diabetic. [facility] Pt requested Klonopin. Pt received Haldol 10mg po prn, Klonopin 0.5mg po prn and Tylenol 650mg po prn @ 0514. He is currently resting on bed but not sleeping. He drank water and ate a light yogurt.
[2016-09-16] MEDS: LORazepam 2 mg Tablet PO SCH (09:55)
[2016-09-16] MEDS: LORazepam 1 mg Tablet PO SCH ×2 (14:48→15:20)
[2016-09-16] MEDS: LORazepam 1 mg Tablet PO PRN (15:17)
--- NOTE | 2016-09-16 15:18 | NUR ---
Nurses Note PRN Patient refused his scheduled Ativan 1.5mg at 1430 but with intermittent encouragement accepted Ativan 1mg at 1517,will assess response. Patient was covered up in his bed nonverbal but eventually walked to the medication room and "asked" for the medication.
--- NOTE | 2016-09-16 15:18 | NUR ---
Data Communications Technician./ c.m. S./O.: met with pt. and MD together in pt.'s room. He was in bed with his eyes closed. He continued responding in a hand gesture occasionally but not all the time. He was closing his eyes very often without answering on MD questions. He agreed to change medications. He denied SI/HI. He was in and out of his room but he was keeping mostly to himself. Pt.'s called and wanted to get an update on pt.'s condition. Pt. refused to sign RUBIO for his family members ( and his father). Retail Department Supervisor called pt.'s and informed her about legal procedure and inability to share information without pt.'s consent. A.: pt. is isolative, selectively mute, quiet, has a flat affect and a poor eye contact. P.: monitor behavior, encourage pt. to speak, court tomorrow; follow care plan.
--- NOTE | 2016-09-16 18:19 | NUR ---
NURS Note [id number] Mood: Unable to assess. Pt unresponsive to questioning. Affect: Restricted. Fluctuates between frustrated, fearful, and vacant. Behavior: Selectively mute. Pt alternated between laying in bed with eyes closed or blanket over head and up pacing halls. In the AM pt offered one word/short phrase verbal responses to writers questions. Afternoon, the pt no longer offered verbal responses to magnetic tape typewriter operator and used thumbs up/thumbs down to communicate. Thought Content/Process: Unable to assess. PRN/NURS Notes: Pt initially refused scheduled 0830 Seroquel and Ativan, with encouragement pt took meds into mouth, spit them back into the cup with water, the swallowed the regurgitated water with pills. Pt refused 1230 olanzapine 5 mg. Pt initially refused 1430 Ativan 1.5 mg. Three RNs offered medication and pt refused all three. After magnetic tape typewriter operator wasted medication, pt came to med room seeking Ativan, given 1 mg PO PRN. Pt signed RUBIO for father, , and DUMP GRADER. Initially declined to sign ROIs for and DUMP GRADER, only agreed to sign when father was present. Pt has agreed to take medications.
--- NOTE | 2016-09-16 20:14 | PCM.PNPSY ---
Subjective Date of Service Sep 16, 2016 Subjective The patient did not speak to the treatment team using words but used some signs down and in the middle to express his mood and response to questions. The patient responded less to questions today than yesterday and reported that he felt that the injections of olanzapine were more helpful than quetiapine. He indicated with a thumbs up, switching to olanzapine. He did not indicate any side effects or medical issues. The patient declined two doses of lorazepam and appeared to begin to experience early withdrawal. Sleep: 3+ hours per staff Appetite: Eating meals Suicidal and homicidal ideation: Denies Auditory hallucinations/Visual hallucinations: Denies Other Psychotic Symptoms: minimally communicative Anxiety: Unable to assess Depression: Unable to assess Current Medications Current Medications Quetiapine Fumarate 100 mg DAILY PO Last administered on 09/16/16 09:55; Admin Dose 100 MG; Start 09/15/16 at 13:25; Stop 09/16/16 at 12:29; Status DC Quetiapine Fumarate 200 mg HS PO Last administered on 09/15/16 20:43; Admin Dose 200 MG; Start 09/15/16 at 21:00; Stop 09/16/16 at 12:29; Status DC Mental Status Exam Appearance: Neat/well groomed Attitude: Guarded, Uncooperative Behavior: Overtly anxious Affect: Flat Mood: Anxious Thought Process/Associations: Other (patient mute today but will gesture with thumbs-up or thumbs down or in the middle for some questions) Speech Production: Muter Thought Content: Other (patient mute) Danger to Self/Suicidal Ideati: None Danger to Others: None Delusions: Paranoid (Appears to be as unable to say why he cannot speak and appears quite guarded.) Hallucinations: Auditory (Denies), Visual (Denies) Consciousness: Hyper-vigilant Orientation: Unable to assess Memory: Untestable Estimate Intellectual Function: Unable to assess Insight: Unable to assess Judgement: Unable to assess Result Diagram: 09/11/16184409/11/161844 Mental Health Plan The patient is 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 His urine tox screen was positive for cocaine although he denied any kind of illicit substance use. He is prescribed clonazepam and lorazepam and his family noted a long-term history of generalized anxiety but only one previous episode of presenting as mute. He was initially admitted as a voluntary patient, but he was noted to be agitated at times and called 911 from the unit twice in and yelled help into the phone. He became agitated and was pacing on the floor screaming incoherently, and was refusing medications and was subsequently detained. He is currently presenting with impaired judgment, severe cognitive impairment, poor insight and coping. Thursday in the ER he was willing to communicate by doing thumbs up or thumbs down but would not talk and would not write. Today he is communicating with thumbs up or thumbs down, but less than yesterday. He has been medication adherent and is denying side effects to current medications but appears to be more sedated and withdrawn. He was agreeable to switching to olanzapine of which he had received two emergent dosages and felt that they were more effective. [place] AXIS I 1. Psychosis unspecified. 2. Rule out major depressive disorder. 3. Rule out panic disorder. 4. Rule out substance induced mood disorder, cocaine. 5. Cocaine use disorder AXIS II Defer. AXIS III None. AXIS IV Moderate. AXIS V Current global assessment of functioning equal to 25. Treatments 1. The patient is admitted to the inpatient unit and will be provided a safe and secure environment. 2. The patient is denying current active suicidality and is not in need of a one-to-one at this time. 3. The patient is encouraged to participate with group and milieu activities. 4. The patient will be seen by the treatment team on a daily basis to assess symptoms, side effects and response to treatment. 5. Quetiapine will be discontinued and he will be switched to olanzapine 5mg twice daily. 6. The patient may benefit from an antidepressant though it is difficult to assess at this time. 7. Will reduce lorazepam to 1.5mg tid. 8. Anticipated length of stay is 7-10 days. Marbin Walsh MD Sep 16, 2016 20:14
--- NOTE | 2016-09-16 20:53 | NUR ---
[facility] Note D-Patient did not attend any structured groups or activities. He ate all meals in the dining room. Patient did not overtly attend to any ALDs but appears moderately groomed. A-Patient started this reporters shift sleeping in his room fully under the blanket. Patient has not spoken the entire shift except to family. Patient has been walking the hallway with a blanket around his shoulders. He did not engage regarding any suicidal thinking, thought disturbances, etc. P-Continue current treatment plan.
--- NOTE | 2016-09-17 05:12 | NUR ---
Nursing Noc Pt had family visiting at the start of shift. His family was putting forth a lot of effort to interact with him. He did sit with them but most of the engagement appeared to be on the families part. Pt continues to remain guarded and avoidant towards staff. He took his scheduled HS medication and retired to his room shortly after his family left for the evening. Pt continues to use hand gestures to communicate. Improved sleep tonight. Pt has remained asleep since 2200 with no noted distress or awakening per protocol checks.
[2016-09-17] MEDS: LORazepam 1 mg Tablet PO SCH ×3 (08:26→20:37)
--- NOTE | 2016-09-17 18:57 | NUR ---
Counseling/Veterinary Surgery Technician: S/O: Patient slept 8+ hours last night per staff. He denies S/I and H/I. He denies auditory an visual hallucinations. Did not get a rating for depression and anxiety. A: Patient is cooperative, guarded, flat affect, anxious, hyper-vigilant, paranoid. P: Follow care plan, coordinate out-patient providers.
--- NOTE | 2016-09-17 21:23 | PCM.PNPSY ---
Subjective Date of Service Sep 17, 2016 Subjective The patient did not speak to the treatment team using words except to report briefly that he was "better" but used hand signs up, down and in the middle to express his mood and response to questions. He also answered questions on 0-10 scale by thumbs up. The patient indicated that he felt olanzapine was more effective. He reported no difficulties with taper of lorazepam. He did not indicate any side effects or medical issues. Patient endorsed some thought blocking. Sleep: 8+ hours per staff Appetite: good Suicidal and homicidal ideation: Denies Auditory hallucinations/Visual hallucinations: Denies Other Psychotic Symptoms: minimally communicative, denies TB/TW/TC/PI/racing thoughts. Anxiety: 07/25 Depression: 06/24 Current Medications Current Medications Lorazepam 1.5 mg TID PO Last administered on 09/17/16 20:37; Admin Dose 1.5 MG; Start 09/16/16 at 14:30 Olanzapine 5 mg BID PO Last administered on 09/17/16 20:37; Admin Dose 5 MG; Start 09/16/16 at 12:30 Mental Status Exam Appearance: Neat/well groomed Attitude: Cooperative, Guarded, Other (uses hand signs) Behavior: Overtly anxious Affect: Flat Mood: Anxious Thought Process/Associations: Other (patient mute today but will gesture with thumbs-up or thumbs down or in the middle for some questions) Speech Production: Muter Speech Rate: Lags/Latency Speech Articulation: Normal Thought Content: Other (patient mute) Danger to Self/Suicidal Ideati: None Danger to Others: None Delusions: Thought Insertion (Denies), Thought Broadcasting (Denies), Thought withdrawal (Denies), Paranoid (Appears to be as unable to say why he cannot speak and appears quite guarded.) Hallucinations: Auditory (Denies), Visual (Denies) Consciousness: Hyper-vigilant Orientation: Unable to assess Memory: Untestable Estimate Intellectual Function: Unable to assess Insight: Unable to assess Judgement: Unable to assess Result Diagram: 09/11/16184409/11/161844 Mental Health Plan The patient is 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 His urine tox screen was positive for cocaine although he denied any kind of illicit substance use. He is prescribed clonazepam and lorazepam and his family noted a long-term history of generalized anxiety but only one previous episode of presenting as mute. He was initially admitted as a voluntary patient, but he was noted to be agitated at times and called 911 from the unit twice in and yelled help into the phone. He became agitated and was pacing on the floor screaming incoherently, and was refusing medications and was subsequently detained. He is currently presenting with impaired judgment, severe cognitive impairment, poor insight and coping. Thursday in the ER he was willing to communicate by doing thumbs up or thumbs down but would not talk and would not write. Today he is communicating with thumbs up or thumbs down, more than yesterday, and used brief single word. He has been medication adherent and is denying side effects to current medications but appears to be more active and engaged. [place] AXIS I 1. Psychosis unspecified. 2. Rule out major depressive disorder. 3. Rule out panic disorder. 4. Rule out substance induced mood disorder, cocaine. 5. Cocaine use disorder AXIS II Defer. AXIS III None. AXIS IV Moderate. AXIS V Current global assessment of functioning equal to 25. Treatments 1. The patient is admitted to the inpatient unit and will be provided a safe and secure environment. 2. The patient is denying current active suicidality and is not in need of a one-to-one at this time. 3. The patient is encouraged to participate with group and milieu activities. 4. The patient will be seen by the treatment team on a daily basis to assess symptoms, side effects and response to treatment. 5. Continue olanzapine 5mg twice daily, consider further titration. 6. The patient may benefit from an antidepressant though it is difficult to assess at this time. 7. Continue lorazepam 1.5mg tid. 8. Continue lorazepam prn, discontinue clonazepam prn. 9. Anticipated length of stay is 7-10 days. Marbin Walsh MD Sep 17, 2016 21:23
--- NOTE | 2016-09-17 23:40 | NUR ---
Nurses Note Evening Patient remained in his room this shift except for a brief visit with his father. Patient remains non-verbal with hand gestures.He continues medication compliant without adverse effects. Patient affect is flat with an odd stare at times without responding to inquiry.Will continue to encourage conversation/interaction and maintain q 15min. checks for safety and support.
--- NOTE | 2016-09-18 05:02 | NUR ---
nursing, nights, 11-7 s/o- has appeared to sleep after 2144 during q 15 minute assessments. a- improved sleep, no apparent distress. p- monitor behavior/emotional state, quality, times and amount of sleep, use and effect of medication. dea
[2016-09-18] MEDS: LORazepam 1 mg Tablet PO SCH ×4 (07:54→20:39)
--- NOTE | 2016-09-18 13:07 | NUR ---
Obs Dayshift Pt has been out in the milieu more today, continues to be mute either walking away from staff when they approach or using hands gestures to respond what he needs. Pt is not participating in groups but did sit in the group room and observed peers w/ no engagement. Pt is refusing/walking away for vitals. Pt appears disheveled, at times confused. Ok/poor ADL's, Good meals - 100%
--- NOTE | 2016-09-18 14:50 | PCM.PNPSY ---
Subjective Date of Service Sep 18, 2016 Subjective The patient was more communicative with the treatment team today and stated that he was "pretty good" today. Most of his answers consisted of either hand motions or, "good." The patient was unable to talk about previous episodes of catatonia or thought blocking or mutism. He stated that his family visit went well. He did endorse ongoing thought blocking but felt that it was better. He did not indicate any side effects or medical issues. Sleep: 8+ hours per staff, "good" Appetite: "good" Suicidal and homicidal ideation: Denies Auditory hallucinations/Visual hallucinations: Denies Other Psychotic Symptoms: Better, but still minimally communicative, denies TB/ TW/TC/PI/racing thoughts. Anxiety: 110 Depression: 0/10 Mental Status Exam Appearance: Neat/well groomed Attitude: Cooperative, Guarded, Other (uses hand signs and one-word responses) Behavior: Overtly anxious Affect: Restricted (occasional smiles) Mood: Anxious Thought Process/Associations: Other (although still mute, using single or brief answers at times.) Speech Production: Paucity (one-word answers with him signs) Speech Rate: Lags/Latency Speech Articulation: Normal Thought Content: Appropriate Danger to Self/Suicidal Ideati: None Danger to Others: None Delusions: Thought Insertion (Denies), Thought Broadcasting (Denies), Thought withdrawal (Denies), Paranoid (appears guarded but denies.) Hallucinations: Auditory (Denies), Visual (Denies) Consciousness: Hyper-vigilant Orientation: Unable to assess Memory: Untestable Estimate Intellectual Function: Average Basis for IQ estimate: Educational history, Employment history Attention/Concentration & Cogn: Impaired Insight: Unable to assess Judgement: Unable to assess Mental Health Plan The patient is 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 His urine tox screen was positive for cocaine although he denied any kind of illicit substance use. He is prescribed clonazepam and lorazepam and his family noted a long-term history of generalized anxiety but only one previous episode of presenting as mute. He was initially admitted as a voluntary patient, but he was noted to be agitated at times and called 911 from the unit twice in and yelled help into the phone. He became agitated and was pacing on the floor screaming incoherently, and was refusing medications and was subsequently detained. The patient, today, was able to answer questions and brief answers and was still using hand signs and gestures for the remainder. He endorsed thought blocking but stated that it was improved. His affect was brighter with occasional smiles. [place] AXIS I 1. Psychosis unspecified. 2. Rule out major depressive disorder. 3. Rule out panic disorder. 4. Rule out substance induced mood disorder, cocaine. 5. Cocaine use disorder AXIS II Defer. AXIS III None. AXIS IV Moderate. AXIS V Current global assessment of functioning equal to 25. Medications Propranolol 20 mg twice daily Olanzapine 5 mg twice daily Lorazepam 1.5 mg 3 times a day Haloperidol 10 mg every 4 hours as needed for agitation or aggression Treatments 1. The patient is admitted to the inpatient unit and will be provided a safe and secure environment. 2. The patient is denying current active suicidality and is not in need of a one-to-one at this time. 3. The patient is encouraged to participate with group and milieu activities. 4. The patient will be seen by the treatment team on a daily basis to assess symptoms, side effects and response to treatment. 5. Increase olanzapine to 5 mg at 8 AM, 2:30 PM, and 10 mg at bedtime. 6. The patient may benefit from an antidepressant though it is difficult to assess at this time. 7. Continue lorazepam 1.5mg tid. 8. Continue lorazepam prn 9. Anticipated length of stay is 7-10 days. Marbin Walsh MD Sep 18, 2016 14:50
--- NOTE | 2016-09-18 17:34 | NUR ---
Nursing Notes [id number] S: Pt is mute today towards staff. He seems to just ignore questions when asked. O: . Pt is limited with interactions of staff. Pt has been out in the dining areas today, he has been coloring today, reading the newspapers and watching TV . Pt not communicating with staff verbally. Pt has been seen interacting with other patients, pt refused to take lorazepam. A: Pt appears to be neat and clean. Pt coming out of his room more today, not making good eye contact but will look towards the ground or out the window when trying to talk to him. He appears to purposely be avoiding staff. P: Monitor for safety and response to treatment. Follow plan of care.
--- NOTE | 2016-09-18 18:54 | NUR ---
Counseling/Instructor Flying: S/O: Patient slept 8+ hours last night per staff. He denies S/I and H/I. He denies auditory an visual hallucinations. Depression is 0/10 and anxiety is 1/10. Patient was somewhat mute during the interview. A: Patient is cooperative, guarded, flat affect, anxious, hyper-vigilant, paranoid. P: Follow care plan, coordinate out-patient providers.
--- NOTE | 2016-09-18 22:37 | NUR ---
Nurses Note Evening Patient remains non-verbal,isolative and internally preoccupied as evidenced by standing in the hallway staring at the ching. He was out of his room for dinner and a visit with his father. He has refused Ativan at 1430 and 2100 accepting the Zyprexa only. No adverse effects have been observed from medication administration. His sleep at night has been within normal limits last night at 8 hours.Will continue to engage,encourage interactions and verbalization of thoughts,concerns and needs.
--- NOTE | 2016-09-19 05:40 | NUR ---
nursing, nights, 11-7 s/o- has appeared to sleep after 2114 during q 15 minute assessments. a- no apparent distress. p- monitor behavior/emotional state, quality, times and amount of sleep, use and effect of medication. dea
[2016-09-19] MEDS: LORazepam 1 mg Tablet PO SCH ×3 (07:44→20:30)
--- NOTE | 2016-09-19 13:45 | NUR ---
NURS Note [id number] Orientation: Unable to assess, pt mute to staff. Mood: Denies (thumbs down) depression, endorses (thumbs down) anxiety, not willing to rate on numbered scale. Affect: Guarded, anxious, agitated. Thought Process/Content: Denies (shook head no) SI, HI. Denies (shook head no) AH, VH. Mute with staff. Behavior: Pt up in common area most of shift. Appeared anxious when approached by advertising writer PRNs/NURS: Pt took scheduled AM lorazepam PO 1 mg., olanzapine 5 mg with hesitation. Addendum: 09/19/16 at 1457 by HO DOHERTY RN Error: 8 hour not 12 hour DAY SHIFT not [id number]
--- NOTE | 2016-09-19 17:41 | NUR ---
[facility] Day Shift Pt maintained behavioral control throughout the shift. Pt affect appears mostly flat, blunt. Pt spends most of the shift resting in his room or watching TV in the dining room. Pt remains non-communicative with staff and peers when active on the unit. Pt attended all meals and ate approx 100% of all meals.
[2016-09-19 17:53] VITALS: BP 158/75; PULSE 85; RESP 18
--- NOTE | 2016-09-19 18:55 | PCM.PNPSY ---
Subjective Date of Service Sep 19, 2016 Subjective The patient reports that he is feeling anxious today. He is still unable to communicate more than with a few brief words. Most of his answers consisted of hand motions. The patient was unable to talk about previous episodes of catatonia or thought blocking or mutism. According to the patient's family is previous episode was approximately 7 years ago with 4 or 5 days of mutism and gradual return to baseline. He reports some racing thoughts today. He also endorses thought blocking. He indicated that he was having some fear regarding the persistence of his symptoms. The patient could not elaborate further due to lack of verbal communication. He did not indicate any side effects or medical issues. Sleep: 9+ hours per staff Appetite: "good" Suicidal and homicidal ideation: Denies Auditory hallucinations/Visual hallucinations: Denies Other Psychotic Symptoms: Better, but still minimally communicative, endorses racing thoughts today but unclear whether these are perseverative thoughts or actual racing thoughts. Anxiety: 11/22, yesterday 06/24 Depression: Current Medications Current Medications Olanzapine 5 mg 1430 PO Last administered on 09/19/16 14:44; Admin Dose 5 MG; Start 09/18/16 at 14:30 Olanzapine 5 mg DAILY PO Last administered on 09/19/16 07:44; Admin Dose 5 MG; Start 09/19/16 at 08:30 Olanzapine 10 mg HS PO Last administered on 09/18/16 20:39; Admin Dose 10 MG; Start 09/18/16 at 21:00 Mental Status Exam Vital Signs Vital Signs Date Time Temp Pulse Resp B/P Pulse Ox O2 Delivery O2 Flow Rate FiO2 09/19/16 17:53 36.2 85 18 158/75 Appearance: Neat/well groomed Attitude: Cooperative, Guarded, Other (uses hand signs and one-word responses) Behavior: Overtly anxious Affect: Restricted Mood: Anxious Thought Process/Associations: Other (although still mute, using single or brief answers at times.) Speech Production: Paucity (one-word answers with him signs) Speech Rate: Lags/Latency Speech Articulation: Normal (though difficult to fully assess) Thought Content: Other (difficult to assess) Danger to Self/Suicidal Ideati: None Danger to Others: None Delusions: Thought Insertion (Denies), Thought Broadcasting (Denies), Thought withdrawal (Denies), Paranoid (appears guarded but denies.) Hallucinations: Auditory (Denies), Visual (Denies) Consciousness: Hyper-vigilant Orientation: Unable to assess Memory: Untestable Estimate Intellectual Function: Average Basis for IQ estimate: Educational history, Employment history Attention/Concentration & Cogn: Impaired Insight: Unable to assess Judgement: Unable to assess Mental Health Plan The patient is 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 His urine tox wa positive for cocaine although he denies any kind of illicit substance use. He is on two different kinds of benzodiazepines, Klonopin and Ativan for unclear reasons. His family noted a long-term history of generalized anxiety but only one previous episode of presenting as mute. He is currently presenting with impaired judgment, severe cognitive impairment, poor insight and coping. Thursday in the ER he was willing to communicate by doing thumbs up or thumbs down but would not talk nor write. Following admission , he began refusing to communicate with thumbs up or thumbs down. He appeared highly agitated and anxious and had called 911 from the unit twice and yelled help into the phone. He became agitated and was pacing on the floor screaming incoherently, and was refusing medications and was subsequently detained. Since being detained, he has been medication adherent and is denying side effects to current medications. The patient appears to be responding to some form of internal stimuli and appears religiously preoccupied. He is agreeable to titration of medication. We discussed that if he does not have a significant response to olanzapine by tomorrow that we should initiate Depakote due to his possible racing thoughts and as an augmentation for the antipsychotic. [place] AXIS I 1. Psychosis unspecified. 2. Rule out bipolar disorder 3. Rule out panic disorder. 4. Rule out substance induced mood disorder, cocaine. 5. Cocaine use disorder AXIS II Defer. AXIS III None. AXIS IV Moderate. AXIS V Current global assessment of functioning equal to 25. Medications Propranolol 20 mg twice daily Olanzapine 5 mg twice daily and 10 mg at bedtime Lorazepam 1.5 mg 3 times a day Haloperidol 10 mg every 4 hours as needed for agitation or aggression Treatments 1. The patient is admitted to the inpatient unit and will be provided a safe and secure environment. 2. The patient is denying current active suicidality and is not in need of a one-to-one at this time. 3. The patient is encouraged to participate with group and milieu activities. 4. The patient will be seen by the treatment team on a daily basis to assess symptoms, side effects and response to treatment. 5. Continue olanzapine 5 mg at 8 AM, 2:30 PM, and 10 mg at bedtime. 6. The patient may benefit from a mood stabilizer such as Depakote and will assess in the morning. 7. Continue lorazepam 1.5mg tid. 8. Continue lorazepam prn 9. Anticipated length of stay is 7-10 days. Marbin Walsh MD Sep 19, 2016 18:55
--- NOTE | 2016-09-19 19:17 | NUR ---
Counseling/Statistical Consultant: S/O: Patient slept 9 hours last night per staff. He denies S/I and H/I. He denies auditory an visual hallucinations. Depression is 0/10 and anxiety is 1/10. Patient was mute during most of the interview. A: Patient is cooperative, guarded, flat affect, anxious, hyper-vigilant, paranoid, mute most of the time. P: Follow care plan, coordinate out-patient providers.
--- NOTE | 2016-09-19 21:00 | NUR ---
NURSING NOTE [id number] Mood: *thumbs up, then thumbs down* Affect: blunted, guarded, blank staring Behavior: watching TV by himself for several hrs from start of shift, asked to take a shower by motioning a shower head w/his hands and then whispering: "shower", remained in there for over an hr until staff encouraged him to come out, which he did, and it did appear that he had showered. His father visited. He asked for his HS meds just before 20:00 and this automatic typewriter inspector explained the medications to him before I removed them from the [employer] and pt. did not protest them. However, when presented w/them in the cup he picked out the Zyprexa and swallowed it, then shook his hands over the cup w/the remaining Ativan, motioning "no". When asked why he was refusing he answered "maybe later". Education provided. Thought processes: pt. did not answer this automatic typewriter inspector when asked any questions re: thought content. He stares blankly at this automatic typewriter inspector then walks away when asked a question.
--- NOTE | 2016-09-20 05:55 | NUR ---
Nursing notes: maintenance supervisor 2nd shift/sleep Patient appears to be sleeping on safety checks during the night, offers no complaints.
[2016-09-20] MEDS: LORazepam 1 mg Tablet PO SCH ×5 (08:03→19:55)
[2016-09-20 08:11] VITALS: BP 145/91; PULSE 67; RESP 16
--- NOTE | 2016-09-20 11:35 | NUR ---
Nursing Day Shift- S/O- Pt. appeared asleep at the start of the day shift. He was awake for breakfast at 0830. He declined to take Ativan at that time with a thumbs down motion. He did take scheduled Zypexa. He was ordered to start Depakote at 1035. Ativan was presented along with Depakote at that time, and again refused. Pt. has remained in the TV area, he appeared tense before Depakote was given, and now sleepy. A- Continues without verbalizations, but with head shakes and nods, or thumb gestures. P- Continue BHTP. Addendum: 09/20/16 at 1453 by HARINI SWAIN RN Pt. refused his 1430 Zyprexa. He would not look at or respond in any way.
--- NOTE | 2016-09-20 13:01 | PCM.PNPSY ---
Subjective Date of Service Sep 20, 2016 Subjective The patient is essentially nonverbal and uses hand signs today. He does report that he feels the medication is somewhat helpful. The patient refused lorazepam 2 and it was discussed with the patient that given his chronic use of this medication, not using it will likely exacerbate his symptoms and potentially cause withdrawal. Despite this, later in the morning he still refused his medication. The patient endorsed auditory hallucinations as well as visual hallucinations outside of the window but would not elaborate. We discussed adding Depakote for augmentation and the patient was agreeable. He did endorse racing thoughts again today. He did not indicate any side effects or medical issues. Sleep: 7.5+ hours per staff Appetite: "So-so" & Suicidal and homicidal ideation: Denies Auditory hallucinations/Visual hallucinations: Endorses both as noted above. Other Psychotic Symptoms: Better, but still minimally communicative, endorses racing thoughts today but unclear whether these are perseverative thoughts or actual racing thoughts. Anxiety: Endorses Depression: Denies Current Medications Current Medications Divalproex Sodium 500 mg BID PO Last administered on 09/20/16 10:36; Admin Dose 500 MG; Start 09/20/16 at 10:20 Olanzapine 5 mg 1430 PO Last administered on 09/19/16 14:44; Admin Dose 5 MG; Start 09/18/16 at 14:30 Olanzapine 5 mg DAILY PO Last administered on 09/20/16 08:00; Admin Dose 5 MG; Start 09/19/16 at 08:30 Olanzapine 10 mg HS PO Last administered on 09/19/16 19:48; Admin Dose 10 MG; Start 09/18/16 at 21:00 Mental Status Exam Vital Signs Vital Signs Date Time Temp Pulse Resp B/P Pulse Ox O2 Delivery O2 Flow Rate FiO2 09/20/16 08:11 36.4 67 16 145/91 Appearance: Unkept (smiling somewhat a body odor) Attitude: Cooperative (partially), Guarded, Other (uses hand signs) Behavior: Overtly anxious Affect: Restricted Mood: Anxious Thought Process/Associations: Other (mute) Speech Production: Paucity (Hand signs) Speech Rate: Lags/Latency Speech Articulation: Other (unable to assess) Thought Content: Other (difficult to assess) Danger to Self/Suicidal Ideati: None Danger to Others: None Delusions: Thought Insertion (Denies), Thought Broadcasting (Denies), Thought withdrawal (Denies), Paranoid (appears guarded but denies.) Hallucinations: Auditory (Endorses), Visual (Endorses) Consciousness: Hyper-vigilant Orientation: Unable to assess Memory: Untestable Estimate Intellectual Function: Average Basis for IQ estimate: Educational history, Employment history Attention/Concentration & Cogn: Impaired Insight: Unable to assess Judgement: Unable to assess Mental Health Plan The patient is 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 His urine tox was positive for cocaine although he denies any kind of illicit substance use. He was on two different kinds of benzodiazepines as an outpatient, Klonopin and Ativan for unclear reasons. His family noted a long-term history of generalized anxiety but only one previous episode of presenting as mute for 4-5 days with gradual resolution. He is currently presenting with impaired judgment, severe cognitive impairment, poor insight and coping. Thursday in the ER he was willing to communicate by doing thumbs up or thumbs down but would not talk nor write. Following admission , he began refusing to communicate with thumbs up or thumbs down. He appeared highly agitated and anxious and had called 911 from the unit twice and yelled help into the phone. He became agitated and was pacing on the floor screaming incoherently, and was refusing medications and was subsequently detained. Since being detained, he has been generally medication adherent and is denying side effects to current medications. He occasionally refuses lorazepam. The patient appears to be responding to some form of internal stimuli and appears religiously preoccupied at times. He has reported auditory and visual hallucinations and given his history 7 years ago of a similar episode and apparent ongoing hallucinations in the interim, the most likely diagnosis is either schizophrenia or schizoaffective disorder bipolar type. He is agreeable to titration of medication. The patient was agreeable to augmentation with Depakote as previously discussed. [place] AXIS I 1. 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 Rule out panic disorder. 4. Rule out cocaine induced mood disorder 5. Cocaine use disorder AXIS II Defer. AXIS III None. AXIS IV Moderate. AXIS V Current global assessment of functioning equal to 25. Medications Propranolol 20 mg twice daily Olanzapine 5 mg twice daily and 10 mg at bedtime Lorazepam 1.5 mg 3 times a day Haloperidol 10 mg every 4 hours as needed for agitation or aggression Treatments 1. The patient is admitted to the inpatient unit and will be provided a safe and secure environment. 2. The patient is denying current active suicidality and is not in need of a one-to-one at this time. 3. The patient is encouraged to participate with group and milieu activities. 4. The patient will be seen by the treatment team on a daily basis to assess symptoms, side effects and response to treatment. 5. Change olanzapine to 10 mg twice daily 6. Start Depakote 500 mg twice daily 7. Continue lorazepam 1.5mg tid. 8. Continue lorazepam prn 9. Anticipated length of stay is 10-14 days. Marbin Walsh MD Sep 20, 2016 13:01 Marbin Walsh MD Sep 20, 2016 13:01
--- NOTE | 2016-09-20 13:58 | NUR ---
[place] Operator./ c.m. S.:"So-so" O.: met with pt. and MD together. Pt. continued communicating with his hand gestures and head nods. He confirmed that his mood was "so-so" and appetite was "so-so". He had racing thoughts today. He denied SI/HI or paranoid/delusional thoughts. He admitted having AH/VH for some time and he experienced them today also. He couldn't tell if he felt depressed. He didn't respond on a question about anxiety. He slept last night. He agreed to take Depakote in addition to Zyprexa. He is in and out of his room sitting quietly near TV. A.: pt. is cooperative, isolative, quiet, has a flat affect and looks internally preoccupied. Pt. is mute. P.: monitor behavior, encourage pt. to talk and to take all his meds; follow care plan.
--- NOTE | 2016-09-20 19:12 | NUR ---
Observations from [id number] Pt continues to be selectively mute with staff and peers. He was visited by his girlfriend and his father and was noted talking with both of them briefly but pt still refuses to speak with staff and will uses hand gestures if he needs anything. Pt attended community meeting but didn't say anything and ate 100%100% of all meals. Pt has been observed every 15 minutes as directed.
--- NOTE | 2016-09-20 19:50 | NUR ---
NURSING NOTE [id number] Mood: *waves hand back and forth signaling so-so* Affect: guarded, blank staring Behavior: mostly watching TV this shift, approached this commercial real estate underwriter to ask for his scheduled Zyprexa that he had initially refused at 14:30, also visited w/his father. Refused his scheduled HS Ativan but could not offer a reason why. Otherwise med compliant. Thought processes: pt. signals w/thumbs up and thumbs down when asked questions re: thought content and mood; he waved his hand back and forth when asked if he was depressed, endorsed anxiety, and shook head *no* when asked if he was suicidal. He has otherwise uttered very few words to this commercial real estate underwriter this shift.
--- NOTE | 2016-09-21 05:38 | NUR ---
Sleep 11p-7a Pt has slept out in the dining room in a chair tonight with brief intermittent awakening. Total sleep over 5 hours. He remains asleep at this time.
[2016-09-21] MEDS: LORazepam 1 mg Tablet PO SCH ×3 (08:04→20:04)
[2016-09-21] MEDS: OLANZapine Zydis ODT 5 mg Tablet PO PRN (09:50)
--- NOTE | 2016-09-21 11:52 | NUR ---
Nursing Day Shift- S/O- Pt. appeared to be asleep while sitting in a chair in the DR at the start of the day shift. He eat well at meals, took his scheduled medications plus a PRN Zyprexa [address] Walsh at 1030 for reported hallucinations. Pt. has remained mute, and selectively responsive with head or hand gestures. He has remained in the DR, napping on and off, despite being encouraged to rest in his bed. A- Pt. appears to be in no apparent distress. Resistant to speech and sleeping in his bed. No outward signs of attending to auditory or visual hallucinations. P- Cont. to encourage trust. Cont. bHTP. Addendum: 09/21/16 at 1207 by HARINI SWAIN RN Pt. declined scheduled AM Ativan.
--- NOTE | 2016-09-21 13:47 | NUR ---
Life Skills Specialist./ c.m. S.:"So-so." O.: met with pt. and MD together in a private room. Pt. didn't sleep well last night. He slept sitting near TV in a Dining room. He didn't feel safe in his room. He continued having racing thoughts. He denied SI/HI. He has AH that are stronger at night. He admitted having VH also. He rated his anxiety at 8/10 but he couldn't rate depression. He is eating ok. He had a good visit with his family yesterday but he didn't tell his father or his about his condition or what was going on with him inside. He agreed to take a higher dose of Zyprexa as well as PRN. He agreed to use a note with a request for meds. He was in and out of his room mostly spending time in the Dining room near TV. A.: pt. is cooperative, isolative, quiet, selectively mute. He had a high anxiety, looks internally preoccupied and responding on internal stimuli. He has a flat affect and looks unkempt. P.: monitor behavior, provide safety in the unit, encourage pt. to talk, encourage pt. to take meds; follow care plan.
--- NOTE | 2016-09-21 18:28 | PCM.PNPSY ---
Subjective Date of Service Sep 21, 2016 Subjective The patient used hand signs today. He spent the evening sleeping on a chair in the dining room. Through process of elimination, he reported that he did not feel safe in his room at night for unclear reasons. He denied feeling that there were voices in the room or that he was afraid of a presence or being followed in the room. He endorsed racing thoughts. He received an additional dose of olanzapine today which she reported was helpful. The patient's father called today and indicated that during his episode 7 years ago where he was mute for 4-5 days he had ongoing auditory hallucinations as well as reporting that he felt that people were following him at all times. The patient denies side effects from medications. Sleep: 5+ hours Appetite: Okay Suicidal and homicidal ideation: Denies Auditory hallucinations: Endorses Visual hallucinations: Possible Other Psychotic Symptoms: As above Anxiety: 810 Depression: /10 Current Medications Current Medications Divalproex Sodium 500 mg BID PO Last administered on 09/21/16 08:00; Admin Dose 500 MG; Start 09/20/16 at 10:20 Olanzapine 5 mg Q6 PRN PO Last administered on 09/21/16 09:50; Admin Dose 5 MG ; Start 09/21/16 at 09:40 Mental Status Exam Appearance: Unkept Attitude: Cooperative (partially), Guarded, Other (uses hand signs) Behavior: Overtly anxious Affect: Restricted Mood: Anxious Thought Process/Associations: Other (mute) Speech Production: Paucity (Hand signs) Speech Rate: Lags/Latency Speech Articulation: Other (unable to assess) Thought Content: Other (difficult to assess) Danger to Self/Suicidal Ideati: None Danger to Others: None Delusions: Paranoid (Endorses) Hallucinations: Auditory (Endorses), Visual (possible) Consciousness: Hyper-vigilant Orientation: Unable to assess Memory: Untestable Estimate Intellectual Function: Average Basis for IQ estimate: Educational history, Employment history Attention/Concentration & Cogn: Impaired Insight: Unable to assess Judgement: Unable to assess Mental Health Plan The patient is 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 His urine tox was positive for cocaine although he denies any kind of illicit substance use. He was on two different kinds of benzodiazepines as an outpatient, Klonopin and Ativan for unclear reasons. His family noted a long-term history of generalized anxiety but only one previous episode of presenting as mute for 4-5 days with gradual resolution. He is currently presenting with impaired judgment, severe cognitive impairment, poor insight and coping. Thursday in the ER he was willing to communicate by doing thumbs up or thumbs down but would not talk nor write. Following admission , he began refusing to communicate with thumbs up or thumbs down. He appeared highly agitated and anxious and had called 911 from the unit twice and yelled help into the phone. He became agitated and was pacing on the floor screaming incoherently, and was refusing medications and was subsequently detained. Since being detained, he has been generally medication adherent and is denying side effects to current medications. He occasionally refuses lorazepam. The patient appears to be responding to some form of internal stimuli and appears religiously preoccupied at times. He has reported auditory and visual hallucinations and given his history 7 years ago of a similar episode and apparent ongoing hallucinations in the interim, the most likely diagnosis is either schizophrenia or schizoaffective disorder bipolar type. He is agreeable to titration of medication. The patient was agreeable to augmentation with Depakote as previously discussed. The patient's mother reports that his ability to speak to the family has improved considerably and he is using multiple word brief sentences with them. [place] AXIS I 1. 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 Rule out panic disorder. 4. Cocaine use disorder AXIS II Defer. AXIS III None. AXIS IV Moderate. AXIS V Current global assessment of functioning equal to 25. Medications Olanzapine 10 mg twice daily and 5 mg q 6 hour prn paranoia or hallucinations Lorazepam 1.5 mg 3 times a day Divalproex 500 mg twice daily Propranolol 20 mg twice daily Treatments 1. The patient is admitted to the inpatient unit and will be provided a safe and secure environment. 2. The patient is denying current active suicidality and is not in need of a one-to-one at this time. 3. The patient is encouraged to participate with group and milieu activities. 4. The patient will be seen by the treatment team on a daily basis to assess symptoms, side effects and response to treatment. 5. Change olanzapine to 10 mg twice daily 6. Start Depakote 500 mg twice daily, VPA level on 09/24/16. 7. Continue lorazepam 1.5mg tid with PRN. 8. Olanzapine Zydis 5 mg every 6 hours PRN paranoia or auditory hallucinations. Patient given a card with request for an indication for one or the other in order to help the team understand his current symptom profile. 9. Anticipated length of stay is 10-14 days. Marbin Walsh MD Sep 21, 2016 18:28
--- NOTE | 2016-09-21 20:41 | NUR ---
NURSING NOTE [id number] Mood: "I'm in the throes of something here, that's what's really going on" Affect: flat, sarcastic at times Behavior: watching TV, using an ice pack on his back and frequently refilling it, often asking for PRNs for pain and anxiety. Retired to bed early this evening at 19:30. Thought processes: continues to be delusional, grandiose, making some bizarre statements and invoking conspiracy theories. Irritated that he is here and wants to discharge. PRNs Tylenol 15:30 for 9/10 back pain, pt. reported it didn't help w/his pain Flexeril and Temazepam @ HS Addendum: 09/21/16 at 2052 by BRETT MOSER RN ERROR-- CHARTED ON WRONG PT.-- PLEASE DISREGARD
--- NOTE | 2016-09-21 20:56 | NUR ---
CORRECTED-- NURSING NOTE [id number] Mood: *nods* Affect: blunted, restricted Behavior: watched TV, not interacting w/peers, visited w/his , blank staring, delayed responses when asked questions and his answers are mostly in hand gestures (thumbs up/down or waving). Refused his scheduled HS Ativan and Ambien. Could not offer reason why to this handbook writer. Thought processes: difficult to assess as he is for the most part not verbally communicative w/this handbook writer. He stared blankly at this handbook writer when asked if he had AH/VH and if he was nervous or fearful of anything on this unit.
--- NOTE | 2016-09-22 06:19 | NUR ---
Nursing Note Shag Truck Driver 11pm to 7am Pt asleep at start of shift sitting upright in day room. Per report from off going nurse, this is the second night pt has fallen asleep in day area and declined going to his room giving the impression that there was something in his room that frightened him. At approximately 0330 pt got up and walked back to his room and fell back to sleep, in no acute distress. Monitored pt with q 15 minute face checks for safety, location and accountability.
[2016-09-22] MEDS: LORazepam 1 mg Tablet PO SCH ×4 (07:43→20:30)
--- NOTE | 2016-09-22 11:50 | NUR ---
Nursing Note [id number] Behavior, Medications S/O: 2 attempts made to offer am medications. Pt said "later" after first attempt, but then refused again an hour later. Pt communicates mostly with gestures. He gave a thumbs up when asked how he was feeling. Pt motioned he would like something to write with. Coloring pages, lined tablet & flexipen given. No interactions noted with peers although pt has been out in dining area. Pt ate 100T of breakfast. He has refused to have his vital signs taken. A: Pt appears to be responding to internal stimuli. P: Provide supportive environment. Monitor medications & effects.
--- NOTE | 2016-09-22 13:27 | NUR ---
Obs Dayshift Pt continues to sit in front of the TV, or window. Taking short naps, no engaging w/ peers or staff. Pt did get a note pad and pen for notes to self and staff. Pt does attend groups, and reads along but is not able to participate. Pt is paranoid, mute, guarded. Ok to Poor ADL's, Good meals
--- NOTE | 2016-09-22 13:44 | NUR ---
Heel Seat Filler./ c.m. S./O.: met with pt. to check his progress. Pt. was sitting alone near a window in the Dining room. he was communicating with his hands gestures and head nodding. He felt a little better today than yesterday but still "so-so". He denied SI/HI. He believed that meds were helping a little. He continued having AH. It wasn't clear if pt. had VH or not. He became more anxious while life insurance underwriter was asking about AH/VH. He refused to talk. A.: pt. is isolative, guarded, mute, has a flat affect and looks internally preoccupied. He is easily agitated and it seems that he is responding on internal stimuli. P.: monitor behavior, monitor for safety, encourage pt. to take meds; follow care plan.
--- NOTE | 2016-09-22 13:44 | PCM.PNPSY ---
Subjective Date of Service Sep 22, 2016 Subjective I spent 30 minutes both reviewing his treatment plan and course w treatment team. I provided supportive and educational psychotherapy but Slade responded w complete mute reactions. I spent less than 50% of the time counseling the patient. I reviewed the treatment plan with the patient and discussed options available including the potential risks, benefits and side effects. Slade refused to respond to any questions. The Staff reports that he has been isolative and is not participating well in one-to-one unit or group activities. He slept 8 hours. He denies medication side effects. Patient was not able to identify his medications or what they were used to treat. Current Medications Current Medications Olanzapine 5 mg Q6 PRN PO Last administered on 09/21/16 09:50; Admin Dose 5 MG ; Start 09/21/16 at 09:40 Olanzapine 10 mg BID PO Last administered on 09/22/16 07:43; Admin Dose 10 MG; Start 09/21/16 at 20:30 Mental Status Exam Appearance: Unkept Attitude: Cooperative (partially), Guarded, Other (uses hand signs) Behavior: Overtly anxious Affect: Restricted Mood: Anxious Thought Process/Associations: Other (mute) Speech Production: Paucity (Hand signs) Speech Rate: Lags/Latency Speech Articulation: Other (unable to assess) Thought Content: Other (difficult to assess) Danger to Self/Suicidal Ideati: None Danger to Others: None Delusions: Paranoid (Endorses) Hallucinations: Auditory (Endorses), Visual (possible) Consciousness: Hyper-vigilant Orientation: Unable to assess Memory: Untestable Estimate Intellectual Function: Average Basis for IQ estimate: Educational history, Employment history Attention/Concentration & Cogn: Impaired Insight: Unable to assess Judgement: Unable to assess Mental Health Plan The patient is 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 His urine tox is positive for cocaine although he denies any kind of illicit substance use. He was on two different kinds of benzodiazepines, Klonopin and Ativan for unclear reasons. His family noted a long-term history of generalized anxiety but only one previous episode of presenting as mute. He presented initially with impaired judgment, severe cognitive impairment, poor insight and coping. Thursday in the ER he was willing to communicate by doing thumbs up or thumbs down but would not talk or write. Today he is refusing to communicate with thumbs up or thumbs down. He appeared calm. He has a supportive family. They stated he has a good work history and has been a loyal and father and son. They are hoping that we can provide him safety and treatment. Since being detained, he has been generally medication adherent and is denying side effects to current medications. He occasionally refuses lorazepam. The patient appears to be responding to some form of internal stimuli and appears religiously preoccupied at times. He has reported auditory and visual hallucinations and given his history 7 years ago of a similar episode and apparent ongoing hallucinations in the interim, the most likely diagnosis is either schizophrenia or schizoaffective disorder bipolar type. The patient's mother reports that his ability to speak to the family has improved considerably and he is using multiple word brief sentences with them. [place] AXIS I 1. 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 Rule out panic disorder. 4. Cocaine use disorder AXIS II Defer. AXIS III None. AXIS IV Moderate. AXIS V Current global assessment of functioning equal to 25. Medications Olanzapine 10 mg twice daily and 5 mg q 6 hour prn paranoia or hallucinations Lorazepam 1.5 mg 3 times a day Divalproex 500 mg twice daily Propranolol 20 mg twice daily Treatments 1. The patient is admitted to the inpatient unit and will be provided a safe and secure environment. 2. The patient is denying current active suicidality and is not in need of a one-to-one at this time. 3. The patient is encouraged to participate with group and milieu activities. 4. The patient will be seen by the treatment team on a daily basis to assess symptoms, side effects and response to treatment. 5. olanzapine to 10 mg twice daily 6. Depakote 500 mg twice daily, VPA level on 09/24/16. 7. lorazepam 1.5mg tid with PRN. 8. Olanzapine Zydis 5 mg every 6 hours PRN paranoia or auditory hallucinations. Patient given a card with request for an indication for one or the other in order to help the team understand his current symptom profile. 9. Anticipated length of stay is 10-14 days. Luis Knapp MD Sep 22, 2016 13:44
--- NOTE | 2016-09-22 18:55 | NUR ---
NURSING NOTE [id number] Mood: no answer Affect: blunted, restricted, avoidant Behavior: pt. sitting by himself in the DR, staring out window for long periods of time. Alternately sits and watches TV, alone. No social interactions w/peers observed. Communicates w/this handbook writer via hand signals and shaking head. Refused his HS Ativan by shaking his head. When this handbook writer asked him why he refused his a.m. medications today he turned and walked away. At 1700 he asked to take a shower by motioning a showerhead w/his hand. When this handbook writer opened the shower door for him, he stood frozen near the NS, staring down the hallway toward the shower, seemingly unable to move. He then turned and paced away from it, and then paced back toward it, and repeated this motion several times. This handbook writer assessed him for AH/VH but he did not respond. Asked the pt. if he was afraid of something but he did not respond. This handbook writer closed the shower and encouraged him to sit down for his dinner instead. He ate his meal, then came again to the to ask for a shower using hand motions. Staff again opened the shower door and again the pt. paced back and forth, froze in place for several moments, and then eventually went into the shower at 17:45. He emerged 10 mins later and appeared to have showered. His father visited. Thought processes: appears to be responding to internal stimuli, does not answer this handbook writer when asked questions re: thought content Addendum: 09/22/16 at 2228 by BRETT MOSER RN PT. REFUSED ALL OF HIS HS MEDICATIONS
--- NOTE | 2016-09-23 01:35 | NUR ---
Observations 1900 to 0700 Pt affect is flat. Pt spent the evening out in the DR but isolated to himself for the most part. Pt had two visitors last night. Pt has yet to fall asleep. Pt was observed every 15 minutes through the night as directed.
--- NOTE | 2016-09-23 06:26 | NUR ---
Nursing Note Ignition Specialist 11pm to 7am Pt did not sleep in his room again last night. He sat upright in a chair with a blanket around him staring at a powered off tv occasionally dozing for brief periods. The milieu was loud and active during the night with peers moving around him, occasionally sitting very close to him and invading his personal space yet he remained in one place mute and rigid. He was unresponsive when staff attempted to engage him to ensure his needs were met. Pt declined HS and prn meds. He is disheveled, eye contact is limited. It is unknown if he is getting adequate food and fluid in take. He appears to have deteriorated in the last 2 days. His insight and judgement is poor, lacks motivation for treatment and is sleep deprived only sleeping 2 hours last night. Unable to assess thought content as pt is guarded and uncommunicative however he appears very internally preoccupied. Monitoring ongoing.
[2016-09-23] MEDS: LORazepam 1 mg Tablet PO SCH ×3 (08:30→20:30)
--- NOTE | 2016-09-23 14:08 | NUR ---
Nursing Note [id number] Behavior, Medications S/O: Pt has good appetite. He refused am medication then came to the med room window at 1315 holding out his hand. Pt took Depakote 500mg & Zyprexa 10mg. He again refused to take Ativan 1.5 mg even after explaining that he may have withdrawal sx if he d/n take it. Pt refused to have his vital signs taken. Pt has a fearful look on his face & furrowed brow. Several times during the day he has ignored me & turned away when a conversation was attempted. Pt continues to refuse to talk & uses gestures to communicate. A: Pt appears to be responding to internal stimuli. He has little insight into illness. P: Provide supportive environment. Monitor medications & effects.
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
--- NOTE | 2016-09-23 15:41 | NUR ---
Designated Broker./ c.m. S./O.: pt. continued to be mute. He answered with his hand signs sometimes. He denied SI/HI. He was in and out of his room since foreclosure clerk walking in a jackson a lot. He didn't sleep much last night. Pt.'s mother Nicole Lopez ([phone]) called and shared information about pt.'s past with the contract technical writer. Mother said that pt. had TBI ("a very bad one") 6-7 years ago. He also was hospitalized at [facility] in [place], [place] where he was diagnosed with drug induced psychosis. Mother told that pt. has a long hx of drug abuse and ETOH (heavy drinking). She said that there is no hx of Schizophrenia in the family but there is one cousin with Bipolar who is taking meds. She said that pt. was in inpatient drug treatment in the past. He also has "very bad reaction on mj - he goes crazy if he uses mj". Pt.'s parents are and mother was concerned that pt.'s father didn't give us correct information. Request for information was faxed to [facility] in [place]. A.: pt. is isolative, quiet, mute, looks internally preoccupied and responding on internal stimuli. P.: monitor behavior, monitor for safety, monitor meds intake; follow care plan.
--- NOTE | 2016-09-23 16:22 | NUR ---
Obs Dayshift Pt spent most of the shift pacing at the end of the hallway, staring out the window, or staring at a picture in the jackson. Pt remains nonverbal w/ staff, is doing a little more acknowledging when staff is talking to him, like nodding, and making eye contact. Pt continues to refuse vitals or let staff come close to him. Pt did enter the Group room during game time, but only stayed for a min and left. Pt doesn't engage w/ any peers. Ok ADL's, Good meals
--- NOTE | 2016-09-23 21:22 | NUR ---
nursing note evening shift O)pt did not talk to staff, made hand gesture of thumbs down for no, refused Ativan though took other medications, refused sleeper, walked jackson turned away from staff but sat with several other patients and maybe was conversing, dad visited tonight and seemed to go well, ate meals, appears groomed A) nonverbal with staff, took selected medications, flat affect withdrawn P) monitor medication effectiveness, encourage participation in treatment
--- NOTE | 2016-09-24 01:58 | NUR ---
Observations 1900 to 0700 Pt affect is flat. Pt spent the evening out in the DR but isolated to himself for the most part. Pt's Dad visited again last night. Pt fell asleep earlier than usual. Pt first fell asleep at 23:45 and was observed every 15 minutes through the night as directed.
--- NOTE | 2016-09-24 06:22 | NUR ---
Sleep Improved sleep through the night. He slept from 4508-1451 for a total of 7 hours sleep.
[2016-09-24] MEDS: LORazepam 1 mg Tablet PO SCH ×3 (08:30→20:30)
[2016-09-24] MEDS ORDERED: Thiamine 100 mg/mL 2 mL Inj ONE (09:32)
[2016-09-24] MEDS ORDERED: chlorproMAZINE 25 mg/mL Inj ONE ×2 (09:47→10:05)
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
[2016-09-24] MEDS ORDERED: chlorproMAZINE 25 mg/mL Inj IM ONE (13:15)
--- NOTE | 2016-09-24 13:45 | NUR ---
Obs Dayshift - Seclusion/Restraint Upon entering my shift, pt was in Seclusion. Staff noticed a plastic utensil in the pocket of his pants. Staff was waiting on more available staff to go in and get it. While waiting the patient took the plastic fork and began scratching and trying to stab at his left forearm. Security and Code Noriega was called. Pt starting yelling "I want to " and "I don't want to be like this anymore". Pt finally threw the fork on the ground as staff were entering the room. Pt willing went into the Restraint room and allowed staff to place him in 4 point locking restraints. Pt became quiet again, refusing to answer any questions, refusing eye contact and closing his eyes. Pt maintained restless, appeared uncomfortable and refusing to answer questions either verbal or physically. Finally after time he did answer yes, physically with his head, that he would like both arms down so that he could sit up. Staff came and assisted putting pt arms both in a down position. Pt drank half of an Ensure and refused any other food or liquids that have been offered, as well as toileting needs. Approx. 1345 pt did respond to staff shaking his head "no" to the question, "Can you be safe if we took one arm out".\\ Pt remains, non verbal, refusing staff assistance for food, water, and toileting. Restless laying in bed, in 4 point restraints.
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
--- NOTE | 2016-09-24 16:51 | NUR ---
Seclusion Interventions defaulted to 09-12-16. All interventions entered on 09-24-16, occurred on 09-24-16.
--- NOTE | 2016-09-24 17:20 | NUR ---
Counseling/Mash Grinder: S/O: Patient slept 7 hours last night per staff. Patient remains in a mute condition and is refusing to speak to interview team. Interview was terminated. A: Patient is uncooperative, guarded, hostile, threatening, anxious, paranoid, poor judgment, poor insight. P: Follow care plan, coordinate out-patient providers.
[2016-09-24 17:39] VITALS: BP 130/76; PULSE 116; RESP 18
--- NOTE | 2016-09-24 18:10 | NUR ---
NURSING NOTE [id number] Pt. in 4-point restraints at start of shift. Pt. continued to be mostly non-communicative w/staff's questions. 16:00: Assessed pt's ROM, CMS, tightness of restraints, all WNL. Pt. refused offer of toileting and medications. He nodded when asked if he wanted a meal and drink but when the tray was brought to him he rolled over and refused to take in any food/fluids and did not respond to staff's encouragement to eat and drink. Pt. did not answer when asked if he was in pain but seemed to indicate he wanted to turn on his side and motioned by moving his L arm repeatedly. Offered to take pt. out of his L arm and R arm restraint w/security present if pt. could show staff he would remain safe and not hurt himself or others. Pt. taken out of L arm restraint at 16:05 with a 5 min wait period to monitor safety. Pt. remained in behavioral control so R leg restraint removed as well. Pt. could not contract w/this screen writer to be safe both to his own person and to others. Pt. did not answer staff's questions re:safety and made attempts to avoid eye contact by turning away and then pulling blanket over his head. 17:30: Telephone order obtained from Dr. Knapp for continued 2-point restraints due to danger to self and others. Order will continue until 21:30. Updated pt's father via telephone on pt's condition. 18:00: Pt. lying in bed w/blanket over his head. Pt. was offered a PBJ sandwich, snacks, juice and water. Pt. refused to pull blanket over his head so staff pulled it off to assess him. Pt. shielded his face w/his hand at that time. Pt's ROM, CMS, and restraint tightness all WNL. Pt. did not endorse pain. Pt. again refused offer of toileting. No urine output noted on clothing or bed. Strong encouragement to drink and eat provided but pt. refused. [place] and beverage were placed within pt's reach. Attempted to contract w/pt. for safety to himself and others to assess his ability to maintain behavioral control out of restraints but pt. continued to be non-communicative and pulled the blanket back over his head. As of time of writing (18:20), pt. has remained safe in his 2-point restraints. Will continue to monitor.
[2016-09-24] MEDS: chlorproMAZINE 25 mg/mL Inj IM PRN (20:21)
[2016-09-24 20:45] VITALS: BP 132/72; PULSE 122; RESP 16
--- NOTE | 2016-09-24 21:27 | NUR ---
Nursing Noc 1999 Pt remains uncooperative with grant writer, see restraint flow sheet, continuing to offer food and fluid with zero cooperation. PRN's use as prescribed, continuing to monitor with 1:1 sitter. 2044 Pt removed from two point restraint. Pt remains non-communicative, refusing food, fluid, or bathroom. Vital signs 132/72. pulse 122, respirations 14. Pt ambulated to seclusion without obvious difficulty. Continuing to monitor with 1:1 observation.
--- NOTE | 2016-09-25 02:44 | NUR ---
09/24/166 IM Ativan repeated as ordered. Pulse 110 prior to administration. Pt still refusing direction or cooperation with staff, but did drink some water after administration. Patient lying on mattress with blanket over head with body turned away from staff post injection. Addendum: 09/25/16 at 0509 by EMILIANO PATTERSON RN Pt has remained in seclusion this shift r/t inability to debrief or agree to safety plan. Pt remains nonverbal with freelance writer. Food and fluid at bedside. See seclusion flow sheet. Continuing to monitor.
[2016-09-25] MEDS: LORazepam 1 mg Tablet PO SCH ×3 (08:30→20:30)
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
--- NOTE | 2016-09-25 18:53 | NUR ---
Counseling/Dragline Mechanic: S/O: Patient remains hostile and irritable. He is refusing to speak to interview team. Interview was terminated. A: Patient is uncooperative, guarded, hostile, threatening, anxious, paranoid, poor judgment, poor insight. P: Follow care plan, coordinate out-patient providers.
[2016-09-25] MEDS ORDERED: chlorproMAZINE 25 mg/mL Inj IM ONE (19:20)
--- NOTE | 2016-09-25 20:37 | NUR ---
Observations 0900 to 2130 Pt was in seclusion when shift started. Pt had 1:1 at all times. Pt is non-communicative, refuses to respond to staff. Pt was offered food at meal times and snack and pt is refusing to eat. all 3 meals were set in his room and pt declined eating any of it. Pt affect and mood was confused, disorganized, unpredictable, responding to internal stimuli. Pt speech and eye contact was very poor, refusing to talk or make eye contact. Pt was offered to go to the bathroom. Pt refused and then urinated on floor. Pt was given towels and he cleaned it up. Pt was observed hitting the ching and banging his head on wall, jared mayo was called at [id number]. Pt was put in 4 pt restraints at 1900.(see nurses note) Pt was observed every 15 minutes throughout the shift as ordered.
[2016-09-25 21:00] VITALS: BP 122/76; PULSE 108; RESP 16
--- NOTE | 2016-09-25 22:38 | NUR ---
NURSING NOTE [id number] Pt. in seclusion at start of shift, laying on his bed, restless w/blanket over his head. 15:30: he got out of bed and began to pace in circles in his room. He made eye contact several times w/this technical proposal writer but did not communicate w/this technical proposal writer when asked several times if he could agree to be safe to himself and others. Pt. was offered food and water. He drank approx. 240 ml water at this time. 16:30: pt. urinated on floor and stripped his clothes off and paced around his room naked. Pt. given change of clothes and was asked if he could sit down on his bed so that staff could clean his floor and remove his unused food items. Pt. could not agree to this so was given towels to clean his floor, which he did. Again, when asked if he could contract for safety he did not respond. 17:30: pt. continued to be unable to contract for safety to himself and others. Continued to be non-communicative. Continued to pace slowly around room. He was given a safety dinner tray, water, and urinal. He did not make use of his urinal, continued to refuse food, but did drink sips of water. 18:50: pt. began banging on the ching of seclusion room and shouting AHHH!!. Then began banging his head against the wall. Refused to listen to staff direction. Giles Zarate called @ 18:53. Pt. assisted to restraints room and placed in 4-points restraints for personal safety at 19:00. Telephone order obtained from doctor @ 19:00. Pt. was screaming to the point of his voice breaking and agitated, struggling against his restraints. Order obtained for one-time injections of Thorazine 100 mg and 2 mg Ativan. Injections administered at approx. 19:10. Pt. did not struggle when medications given. Pt. did not answer when asked if he was in pain. He had red abrasions on his forehead from head-banging the wall but no open areas noted. 20:30: pt. continued to refuse to respond to staff re:safety mari. CMS WNL. ROM performed, and limbs were readjusted for pt. comfort. When asked if he wanted water he opened his eyes, made eye contact w/this technical proposal writer, and nodded. Pt. drank 440 ml of water at that time. 21:00 V/S taken: 36.8 T, 122/76 BP, 108 HR, 99% O2, 16 RR. 21:55 pt. contracted w/RN for safety by making eye contact w/RN and nodding, agreeing he would not hurt self or others. W/security present, pt. was taken out of restraints and took MHA's hand for assistance getting out of bed. He then toileted in the BR and then was escorted to seclusion room and provided w/water in room. Seclusion initiated at 22:00 and telephone order obtained from Dr. Knapp. At time of this writing (22:30) pt. is lying on floor of seclusion room (not on mattress) w/blanket over his head.
--- NOTE | 2016-09-26 03:30 | NUR ---
Nursing Noc Patient out of restraints since 21:55 given fluid and offer of food at that time. Pt used bathroom to void then ambulated to seclusion with show of force. Zero difficulty noted with ambulation but pt again refused to acknowledge staff or follow direction. 1:1 sitter in use. Continuing to monitor, BHCP Water at bedside. See Q2 hour seclusion assessment, flow sheet.
[2016-09-26] MEDS: LORazepam 1 mg Tablet PO SCH ×3 (08:30→20:30)
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
[2016-09-26] MEDS: chlorproMAZINE 25 mg/mL Inj IM PRN ×2 (13:13→21:44)
--- NOTE | 2016-09-26 14:47 | NUR ---
Counseling/Concrete Pipe Making Machine Operator: S/O: Patient had 6 hours of "interrupted" sleep last night, per staff. Patient remains hostile and irritable. He is refusing to speak to interview team. Psychiatrist attempted on various occasions to interview patient and interview was eventually terminated. A: Patient is uncooperative, guarded, hostile, threatening, anxious, paranoid, poor judgment, poor insight. P: Follow care plan, coordinate out-patient providers. Addendum: 09/26/16 at 1452 by ARIELLE ESCOBEDO [facility] [place] Monitor patient's behavior because he is very unpredictable.
--- NOTE | 2016-09-26 16:00 | NUR ---
Nurses Note PRN Patient received in seclusion room. He was non-verbal with a fleeting stare. Patient could not/would not follow directions to sit on the mattress. He stepped behind the mattress and "marched" in place avoiding eye contact. Patient continued to pace the room. He has been offered toileting and fluids but has refused to acknowledge the offer. Patient has remained guarded,suspicious and difficult to assess mind set. He did sit on the mattress with firm direction to do so. He was offered Ativan 1mg PO that was scheduled and refused. He accepted Thorazine 50mg PO at this time. Patient again was encouraged to toilet with staff at the open door but again refused by turning around in the seclusion room. Will continue to assess medication effect,encourage cooperation, maintain q 15min. assessments.
--- NOTE | 2016-09-26 21:11 | NUR ---
Observations 0900 to 2130 Pt was in seclusion when shift started. Pt had 1:1 at all times. Pt is non-communicative, refuses to respond to staff. Pt was offered food at meal times and snack. Pt declined eating the breakfast that was set in the room. Pt ate about 75% of sandwich for lunch. Pt ate about 25% of dinner. Pt affect and mood was confused, disorganized, unpredictable, responding to internal stimuli. Pt speech and eye contact was very poor, refusing to talk or make eye contact most of the shift. Pt was offered to use the bathroom several times, urinal is also in his room but he refuses to use either. Pt drank lots of water and fluids throughout the day. Pt was observed every 15 minutes throughout the shift as ordered.
--- NOTE | 2016-09-26 22:51 | NUR ---
Nurses Note Evening Patient remains in seclusion as he has not been able to follow directions remains non-verbal refusing to toilet or vital signs, refusing to accept PO medications at HS and received IM Thorazine 100mg left buttock without resistance. Patient ate 25% of his dinner and has drank 4 8 oz cups of water along with 1 apple juice. Patient has refused to toilet after walking into the bathroom and turning around returning to the isolation room. Patient has not made attempts at self injury. He remains on q 15min. checks for safety and constant observation. Addendum: 09/26/16 at 2309 by MARIA FERNANDA CONWAY RN Amended: Links added.
--- NOTE | 2016-09-27 02:01 | NUR ---
nursing, nights, 11-7 s- unresponsive to staff. o- line of sight observation. pacing briefly at the start of the shift. mostly sitting in a corner partially covered with a blanket. alternates between sitting quietly and making odd hand/arm movements. will appear asleep for brief periods. does not respond to staff offer of assistance. a- unable to demonstrate safe/appropriate behavior. no apparent physical distress. p- monitor behavior/emotional state, quality, times and amount of sleep, use and effect of medication. dea
--- NOTE | 2016-09-27 03:33 | NUR ---
nursing, nights, 11-7 s- shakes head no and yes. otherwise unresponsive. o- patient awoke and staff entered room. offered food, fluids and toilet. he declined food and the toilet. accepted water. returned to sitting in the corner. started to make a bed but then returned to sitting in the corner. is currently resting quietly and possibly asleep. has line of sight observation. a- interrupted sleep, somewhat able to express his needs, unable to engage in debriefing and behavioral expectations, no apparent incontinence or physical distress. p- monitor behavior/emotional state, quality, times and amount of sleep, use and effect of medication. dea
--- NOTE | 2016-09-27 04:57 | NUR ---
NOC Observation - Pt restless all night not laying down at all to sleep, dozing sitting up. Staff offered food, drink, bathroom multiple times through shift. He took a couple bites of offered food but did drink, no bathroom use. He did have limited eye contact and would at times nod in answer to questions. Tried soft music for relaxation. Reiterated to him that we are there to keep him safe and help him and we were available at all times should he need anything. Observed continuously with frequent offers to personal needs.
--- NOTE | 2016-09-27 06:03 | NUR ---
nursing, nights, 11-7 s/o-got up and knocked on door. indicated toilet. when staff assembled and door was opened he declined to leave the room and use the toilet. he made eye contact and gestured but remains mute. he is currently pacing. a- internally preoccupied, no apparent physical distress. p- monitor behavior/emotional state, quality, times and amount of sleep, use and effect of medication. line of sight observation, encourage adl's. dea
[2016-09-27] MEDS: LORazepam 1 mg Tablet PO SCH ×3 (08:30→19:52)
--- NOTE | 2016-09-27 11:53 | PROG NOTE ---
[address] [address] PROGRESS NOTE PATIENT: YUSEF SNYDER : 1985 MR#: [id number] ADMIT: 09/12/2016 JOB ID: [id number] DATE: 09/27/2016 IDENTIFICATION: A 31-year-old, gentleman hospitalized involuntarily on this unit on the August. DIAGNOSES: 1. Unspecified psychotic disorder. 2. Polysubstance dependence (cannabis, cocaine, sedative hypnotics, alcohol), continuous. 3. Nicotine dependence, continuous. 4. History of traumatic brain injury four years back; presently on chlorpromazine 100 mg twice a day with intramuscular backup and as needed 50 mg every 4 hours, lorazepam 1 mg three times a day and Depakote 500 twice a day. NARRATIVE: He actually decompensated after he came here. That would work against a substance-related etiology. He did take his Depakote when he came in intermittently over the first couple of days and then not for the last few days. He was placed on a 14-day order yesterday, and he did get an IM backup with a second signature, and has had two doses of Seroquel. This morning he continues to be in seclusion. He continues to make limited eye contact. He appears preoccupied. He paces. He did allow us to put a nicotine patch on and according to the staff, was a little more cooperative. We had to continue the restraints last evening because of total disorganization of behavior and inability to redirect him. No sedation or EPS. At this point, we are watching his blood pressure. We will continue to adjust the dose of the chlorpromazine but continues seclusion for his own safety and for monitoring.
--- NOTE | 2016-09-27 12:05 | NUR ---
Flight Crew Scheduler./ cKipm. S./O.: pt. was in seclusion room in the morning. He was sleeping on a floor covered with a blanket or paced around the room. He didn't respond on staff requests. He refused to draw a blood. He wasn't available for a conversation. A.: pt. is mute, unpredictable, uncooperative, looks anxious and internally preoccupied. P.: monitor behavior, monitor for safety, follow care plan.
--- NOTE | 2016-09-27 15:26 | NUR ---
day shift note Refer to every 2 hour assessment. Pt. is on every 14 Addendum: 09/27/16 at 1527 by MARIA FERNANDA CONWAY RN wrong shift
--- NOTE | 2016-09-27 15:34 | NUR ---
Day shift Nursing note Please refer to every 2 hour assessment. Pt. did take Thorazine in the early afternoon. Otherwise he has been pacing the floor and up and making weird movements with his feet and his bedsheet on the floor. He refused to eat any food at meals but did drink a few fluids. he took his Thorazine in the afternoon but refused any other meds. He refuses to speak with staff. He is on every 15 min. checks.
[2016-09-27] MEDS: chlorproMAZINE 25 mg/mL Inj IM PRN ×2 (19:56→23:57)
--- NOTE | 2016-09-27 20:15 | NUR ---
Nurses Note Evening Received patient in the seclusion room. Patient remained mute refusing meals,toileting and vital signs with poor eye contact. He received Thorazine PO after lunch with prolonged encouragement. Patient was spoken to regarding behavioral expectations and staffs' concern for his improved mental status with the administration of medications. Patient received Thorazine 100mg and Ativan 1mg IM at 1954 without difficulty. Patient had a trial for behavioral control in the isolation bathroom and was able to perform hygiene needs with instruction. Seclusion discontinued at 2014. Patient returned to his room and initially refused to allow vital signs to be take. With encouragement,his RW=367/88,P=126. Patient has continued to refuse food but has been drinking at intervals small mouthfuls. Will maintain q 15min. checks for safety and support.
[2016-09-27 20:30] VITALS: BP 128/88; PULSE 126
--- NOTE | 2016-09-28 04:50 | NUR ---
Nursing Note 11pm to 7am Pt in room awake at approx 2345, attempted to assess pt and take his vitals but refused. Becoming increasingly restless and refusing po meds. Offered pt an injection as he had willingly received them while in seclusion and he agreed by lying on his stomach. Pt given Thorazine 100mg IM and Ativan 1mg IM with good effect. Pt was nonverbal, affect and mood depressed. Guarded and fearful. Pt has no urinated since the morning of 09/26 despite close monitoring and prompts to use the toilet and urinal. Pt fell back to sleep in his room without incident and has remained asleep the duration of the shift. Breathing even and unlabored, strong pulse noted.
[2016-09-28] MEDS: LORazepam 1 mg Tablet PO SCH ×3 (08:30→20:30)
[2016-09-28] MEDS: Divalproex Sprinkles 125 mg ER12 Capsule PO SCH ×2 (08:30→20:30)
[2016-09-28 08:50] VITALS: BP 119/74; PULSE 150; RESP 16
--- NOTE | 2016-09-28 10:15 | PROG NOTE ---
[address] [address] PROGRESS NOTE PATIENT: YUSEF SNYDER : 1985 MR#: [id number] ADMIT: 09/12/2016 JOB ID: [id number] DATE: 09/28/2016 IDENTIFICATION: This is a 31-year-old, gentleman hospitalized involuntary on this unit September 12, 2016. DIAGNOSIS: AXIS I1. Unspecified disorder. 2. Nicotine dependence. 3. Cannabis use disorder. 4. Alcohol use disorder. 5. 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 AXIS IIIHistory of traumatic brain injury 4 years back. MEDICATIONS: 1. Chlorpromazine 100 mg twice a day. He does have a IM backup. 2. Lorazepam 1 mg 3 times a day. 3. Depakote 500 b.i.d. NARRATIVE: Patient seen and discussed with staff. Out of seclusion today, dressed in street clothes. Able to track conversation a little better. Calm when I approach him, but still appears preoccupied, guarded and may well be hallucinating. Refused 1 dose of oral Seroquel, got IM backup to take the other one. Did not receive any lorazepam apparently except for an IM order and I have changed the Depakote to sprinkles today. Hopefully he will take that. Still appears almost catatonic, and I explained to him the importance of taking lorazepam, but he declined that. He needs constant monitoring. He needs strengthening of his reality testing and further adjustment of the Thorazine at this point, but since we want to be giving him hopefully the lorazepam on a regular basis and the Depakote as sprinkles I will leave the Thorazine as is. He does have a p.r.n. and I will defer further increases to his psychiatrist on Thursday.
--- NOTE | 2016-09-28 12:13 | NUR ---
Nursing Note [id number] S/O: Pt pleasantly declined his medications twice this morning. He has been unwilling to talk with staff or peers, but has been using a thumbs down sign. He did nod his head when told he would have to have an injection. Pt pleasant & cooperative with injection of Ativan 1 mg & Thorazine 100 mg. Pt has refused to eat breakfast or lunch. Affect is flat. He con't to pace the hallway frequently. Pt frequently d/n respond to questions by staff. A: Pt appears to be responding to internal stimuli. P: Provide supportive environment. Monitor medications & effects.
--- NOTE | 2016-09-28 15:28 | NUR ---
Robot Programmer./ c.m. S./O.: met with pt. and MD together in the Dining room. Pt. was dressed in his regular cloths. He took a shower earlier this morning. He refused to talk. He denied SI/HI. He was communicating reluctantly with his hands or head nod. MD asked pt. to take Ativan for faster improvement but pt. refused. He was in and out of his room pacing in a jackson. A.: pt. is isolative, mute, looks internally preoccupied and has a flat affect. P.: monitor behavior, provide safety in the unit, encourage pt. to take meds and to talk to staff; follow care plan.
[2016-09-28] MEDS: LORazepam 1 mg Tablet PO PRN (18:57)
--- NOTE | 2016-09-28 19:03 | NUR ---
MHA Note D- Patient did not attend any structured groups or activities this shift. He ate only about 20% of dinner and did so with the help of his in the multi-purpose room. Patient did not attend to any ADLs this shift and appears disheveled. A- Patient spent most of the shift pacing in the hallway. He declined to speak to staff but chose to communicate with gestures. Patient did appear to have a forced bright affect. Patient was calm with peers, even those who were intrusive, showing behavior less impulsive and irritable. He is unable or unwilling to engage regarding any insight. P- Continue current treatment plan.
--- NOTE | 2016-09-28 22:21 | NUR ---
Nurses Note Evening Patient has been out on the unit most of this shift. He sat in the dining room and colored pictures,walked the hallways earlier in the shift. It was reported that patient had showered on the day shift without assist. He was visited by his father at 1500 which went well. Patient refused his afternoon Ativan 1mg PO indicating to principal technical writer that he was not anxious by holding his hands out stretched to indicate steadiness.He remains non-verbal and continues to communicate with hand gestures and head nods. Patient ate afternoon snacks and then dinner was assisted by his . Patients' affect was constricted but has had good eye contact with occasional smiles when appropriate. He accepted his night medications orally and retired to bed. Will continue to encourage unit groups,make frequent contact for support and encourage continued medication compliance.Maintain q 15min. checks for safety and support. Patients' family have requested to be contacted prior to medication administration if patient refuses his PO medications. Addendum: 09/28/16 at 9796 by MARIA FERNANDA CONWAY RN Amended: Links added.
--- NOTE | 2016-09-29 04:14 | NUR ---
Nursing note: email designer/sleep Patient observed to be sleeping in his room on safety checks until 0300. Patient then up to dining room, sat down on couch with blanket around him. Inquired if patient needed anything, he shook his head 'no". Patient offered prn medication, and again shook his head "no'. Patient appears to be sleeping in sitting position on couch the remainder of evening. Addendum: 09/29/16 at 0706 by MATTHEW ROBERT RN Nursin Patient noted walking in hallway, came to nursing station gesturing with his hands to ears. Patient was asked is he was hearing voices and nodded yes. Patient accepted additional thorazine at 0625. Patient also gestured and pointed to his legs. Patient was asked if his legs were sore, and nodded yes. Patient also accepted prn tylenol.
[2016-09-29] MEDS: LORazepam 1 mg Tablet PO SCH ×3 (08:30→19:50)
[2016-09-29] MEDS: Divalproex Sprinkles 125 mg ER12 Capsule PO SCH ×2 (09:02→19:41)
[2016-09-29 10:03] VITALS: BP 127/80; PULSE 138; RESP 16
[2016-09-29] MEDS: OLANZapine Zydis ODT 5 mg Tablet PO SCH ×2 (13:14→19:41)
--- NOTE | 2016-09-29 15:43 | NUR ---
Collar Cutter./ c.m. S./O.: met with pt. and MD together in pt.'s room. Pt. continued communicating by hand gestures and head nods. He denied SI/HI, denied VH. He admitted having AH that were "bad right now". He rated depression at 4/10 and anxiety at 6/10. He agreed to take Zyprexa again. He didn't notice a difference after taking Thorazine for a few days. He was in and out of his room walking in a jackson, sitting in a Dining room by himself. He was able to eat today. He agreed to continue eating and drinking. Pt.'s father called today and MD spoke with him about pt.'s condition and treatment plan. A.: pt. is cooperative, isolative, mute, internally preoccupied. He has a flat affect and looks disheveled. P.: monitor behavior, monitor meds intake, provide safety in the unit, monitor food intake and encourage personal ADLs; follow care plan.
--- NOTE | 2016-09-29 16:33 | PCM.PNPSY ---
Subjective Date of Service Sep 29, 2016 Subjective Patient only using hand signs and writing on paper today. He writes that he is unsure whether the medication is helping at all and reports significant auditory hallucinations. Patient is agreeable to restarting Zydis. Patient reports not urinating and not drinking, but mouth moist, good skin turgor and capillary refill. Declines blood test, but may do UA. Sleep: 6 hours Appetite: decreased Suicidal and homicidal ideation: denies Auditory hallucinations: endorses Visual hallucinations: denies Other Psychotic Symptoms: N/A Anxiety: 11/22 Depression: 09/22 Current Medications Current Medications Divalproex Sodium 500 mg BID PO Last administered on 09/29/16 09:02; Admin Dose 500 MG; Start 09/28/16 at 08:30 Olanzapine 10 mg BID PO Last administered on 09/29/16 13:14; Admin Dose 10 MG; Start 09/29/16 at 11:35 Mental Status Exam Vital Signs Vital Signs Date Time Temp Pulse Resp B/P Pulse Ox O2 Delivery O2 Flow Rate FiO2 09/29/16 10:03 36.4 138 16 127/80 Appearance: Unkept Attitude: Guarded, Uncooperative Behavior: Other (pacing on unit) Affect: Blunted Mood: Anxious Thought Process/Associations: Blocking, Other (mute) Speech Production: Muter Speech Rate: Lags/Latency Speech Articulation: Other (unable to assess) Thought Content: Other (difficult to assess) Danger to Self/Suicidal Ideati: None Danger to Others: None Delusions: Paranoid (Unclear, but appears so) Hallucinations: Auditory (Endorses), Visual (Denies) Consciousness: Alert Orientation: Person, Situation (limited due to mutism) Memory: Untestable Estimate Intellectual Function: Average Basis for IQ estimate: Educational history, Employment history Attention/Concentration & Cogn: Impaired Insight: Unable to assess Judgement: Poor Mental Health Plan The patient is 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 His urine tox was positive for cocaine although he denies any kind of illicit substance use. He was on two different kinds of benzodiazepines as an outpatient, Klonopin and Ativan for unclear reasons. His family noted a long-term history of generalized anxiety but only one previous episode of presenting as mute for 4-5 days with gradual resolution. He is currently presenting with impaired judgment, severe cognitive impairment, poor insight and coping. Thursday in the ER he was willing to communicate by doing thumbs up or thumbs down but would not talk nor write. Following admission , he began refusing to communicate with thumbs up or thumbs down. He appeared highly agitated and anxious and had called 911 from the unit twice and yelled help into the phone. He became agitated and was pacing on the floor screaming incoherently, and was refusing medications and was subsequently detained. Since being detained, he has been initially medication adherent and was denying side effects to current medications. He began refusing medications last week and quickly declined, becoming paranoid and aggressive. Since being placed on chlorpromazine he has exhibited minimal improvement. He is agreeable to restarting olanzapine and reported several hours later that he was experiencing some improvement in his anxiety. He was encouraged to provide a UA. [place] AXIS I 1. Rule out Schizophrenia chronic paranoid type versus schizoaffective disorder bipolar type 2. Rule out substance induced psychotic disorder 3. Rule out panic disorder. 4. Cocaine use disorder 5. Rule out cognitive/mood disorder secondary to history of TBI AXIS II Defer. AXIS III None. AXIS IV Moderate. AXIS V Current global assessment of functioning equal to 25. Medications Thorazine 100 mg twice a day by mouth or IM with 50mg q4hr PRN aggression/ agitation Lorazepam 1 mg 3 times a day (patient reportedly had been using relatively high amounts of Ativan and Klonopin as an outpatient ) Divalproex 500 mg twice daily Propranolol 20 mg twice daily Lorazepam 1mg q4hr PRN anxiety/agitation Olanzapine 5mg po q6hr PRN paranoia/hallucinations Treatments 1. The patient is admitted to the inpatient unit and will be provided a safe and secure environment. 2. The patient is denying current active suicidality and is not in need of a one-to-one at this time. 3. The patient is encouraged to participate with group and milieu activities. 4. The patient will be seen by the treatment team on a daily basis to assess symptoms, side effects and response to treatment. 5. Restart olanzapine to 10 mg twice daily 6. Recheck VPA level when stable on depakote for 4 days 7. Check UA for Spec. gravity as refusing/refused labs. 8. Olanzapine Zydis 5 mg every 6 hours PRN paranoia or auditory hallucinations. Patient given a card with request for an indication for one or the other in order to help the team understand his current symptom profile. 9. Taper chlorpromazine if responds to olanzapine/depakote restart. 10. Anticipated length of stay is 10-14 days. Marbin Walsh MD Sep 29, 2016 16:32 Divalproex 500 mg twice daily Propranolol 20 mg twice daily Labs: Check liver function tests in 5 days. Education: Educate patient about recreational drug use as a potential etiology Address patient's legal status Patient is on a 14 day involuntary treatment hold entered for 09/26/16. Disposition: Home Marbin Walsh MD Sep 29, 2016 16:32
--- NOTE | 2016-09-29 18:19 | NUR ---
Observations [id number] Pt was asleep much of the morning, sleeping late. Pt attended meals, eating an average of 75%. He continues to pace the halls, appears internally preoccupied, and distant. He continues to use non verbal cues to indicate what his needs are, such as taking a shower, or needing to use the phone. Pt also spent time in the dining area, staring outside. Pt did not attend group, he did attend Community Meeting but again was non verbal. Pt took a quick shower in the evening. He was observed every 15 minutes of shift as directed.
--- NOTE | 2016-09-29 23:18 | NUR ---
nursing note evenings O) pt remains non verbal, had visit from and dad seemed to go well, has pictures of his family that he is carrying around, dressed in own clothes, took medications with hesitation with family present, refused Ativan ate meals, showed his pictures of family to select peers A)took medication except ativan, non verbal, walked halls P) monitor medication effectiveness and encourage participation in treatment
--- NOTE | 2016-09-30 03:54 | NUR ---
Observations 1900 to 0700 Pt affect is flat. Pt spent the evening out in the DR and the hallway but isolated to himself for the most part. Pt's and Dad visited again last night. Pt fell asleep earlier than usual. Pt first fell asleep at 22:15 and was observed every 15 minutes through the night as directed.
--- NOTE | 2016-09-30 06:19 | NUR ---
Nursing note: night warehouse selector Patient appears to be sleeping on safety checks during the night. Patient up early am walking in hallways
[2016-09-30] MEDS: Divalproex Sprinkles 125 mg ER12 Capsule PO SCH ×2 (07:44→20:45)
[2016-09-30] MEDS: OLANZapine Zydis ODT 5 mg Tablet PO SCH ×2 (07:44→20:43)
[2016-09-30] MEDS: LORazepam 1 mg Tablet PO SCH ×3 (08:17→20:30)
--- NOTE | 2016-09-30 10:48 | NUR ---
Per phone call with pt's father, pt has had night terrors off and on as a child.
[2016-09-30 13:05] VITALS: BP 121/67; PULSE 106; RESP 16
--- NOTE | 2016-09-30 14:42 | NUR ---
Nursing day shift: Nonverbal, walking frequently in jackson, reading magazine at times. Attended community meeting, did not set goal. Uses gestures to communicate, nods appropriately. Ate well at breakfast and lunch. Medicated with PRN tylenol for leg pain, some relief provided.
--- NOTE | 2016-09-30 15:25 | PCM.PNPSY ---
Subjective Date of Service Sep 30, 2016 Subjective Patient did make brief but audible responses to some questions today. He reported that he is still hearing voices but they are lower and are not command in nature. He reported feeling safe and denied seeing anyone outside and had not experienced visual hallucinations since last week. Patient declining blood draw and had not produced urine sample. No side effect c/o. Sleep: 7.5 hours Appetite: "okay" Suicidal and homicidal ideation: denies Auditory hallucinations: endorses Visual hallucinations: denies Other Psychotic Symptoms: thought blocking, appears somewhat improved Anxiety: 09/22, yesterday 11/22 Depression: 07/25, yesterday 09/22 Current Medications Current Medications Olanzapine 10 mg BID PO Last administered on 09/30/16t 07:44; Admin Dose 10 MG; Start 09/29/16 at 11:35 Mental Status Exam Vital Signs Vital Signs Date Time Temp Pulse Resp B/P Pulse Ox O2 Delivery O2 Flow Rate FiO2 09/30/16 13:05 36.0 106 16 121/67 Appearance: Unkept Attitude: Cooperative (brief answers, hand signs), Guarded Behavior: Other (pacing on unit) Affect: Blunted Mood: Anxious Thought Process/Associations: Blocking, Other (minimal responses) Speech Production: Muter Speech Rate: Lags/Latency Speech Articulation: Other (minimal, difficult to asses) Thought Content: Other (difficult to assess) Danger to Self/Suicidal Ideati: None Danger to Others: None Delusions: Paranoid (Unclear, but appears so) Hallucinations: Auditory (Endorses), Visual (Denies) Consciousness: Alert Orientation: Person, Situation (limited due to mutism) Memory: Untestable Estimate Intellectual Function: Average Basis for IQ estimate: Educational history, Employment history Attention/Concentration & Cogn: Impaired Insight: Limited Judgement: Limited Mental Health Plan The patient is 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 His urine tox was positive for cocaine although he denies any kind of illicit substance use. He was on two different kinds of benzodiazepines as an outpatient, Klonopin and Ativan for unclear reasons. His family noted a long-term history of generalized anxiety but only one previous episode of presenting as mute for 4-5 days with gradual resolution. On admission, he presented with impaired judgment, severe cognitive impairment, poor insight and coping. In the ER he was willing to communicate by doing thumbs up or thumbs down but would not talk nor write. Following admission, he began refusing to communicate with thumbs up or thumbs down. He appeared highly agitated and anxious and had called 911 from the unit twice and yelled help into the phone. He became agitated and was pacing on the floor screaming incoherently, and was refusing medications and was subsequently detained. Since being detained, he has been initially medication adherent and was denying side effects to current medications. He began refusing medications last week and quickly declined, becoming paranoid and aggressive. Since being placed on chlorpromazine he has exhibited minimal improvement. He is agreeable to restarting olanzapine and reported several hours later that he was experiencing some improvement in his anxiety. He continues to endorse improvement in his symptoms today. He was encouraged to provide a UA. [place] AXIS I 1. Rule out Schizophrenia chronic paranoid type versus schizoaffective disorder bipolar type 2. Rule out substance induced psychotic disorder 3. Rule out panic disorder. 4. Cocaine use disorder 5. Rule out cognitive/mood disorder secondary to history of TBI AXIS II Defer. AXIS III None. AXIS IV Moderate. AXIS V Current global assessment of functioning equal to 25. Medications Thorazine 100 mg twice a day by mouth or IM with 50mg q4hr PRN aggression/ agitation Olanzapine Zydis 10mg twice daily Lorazepam 1 mg 3 times a day (patient reportedly had been using relatively high amounts of Ativan and Klonopin as an outpatient ) Divalproex 500 mg twice daily Propranolol 20 mg twice daily Lorazepam 1mg q4hr PRN anxiety/agitation Olanzapine 5mg po q6hr PRN paranoia/hallucinations Treatments 1. The patient is admitted to the inpatient unit and will be provided a safe and secure environment. 2. The patient is denying current active suicidality and is not in need of a one-to-one at this time. 3. The patient is encouraged to participate with group and milieu activities. 4. The patient will be seen by the treatment team on a daily basis to assess symptoms, side effects and response to treatment. 5. Continue olanzapine Zydis 10 mg twice daily and consider increasing to 10mg qam and 20mg qhs. 6. Recheck VPA level when stable on depakote for 4 days 7. Check UA for Spec. gravity as refusing/refused labs. 8. Olanzapine Zydis 5 mg every 6 hours PRN paranoia or auditory hallucinations. Patient given a card with request for an indication for one or the other in order to help the team understand his current symptom profile. 9. Taper chlorpromazine if responds to olanzapine/depakote restart. 10. Anticipated length of stay is 10-14 days. Marbin Walsh MD Sep 30, 2016 15:25
[2016-09-30] MEDS: OLANZapine Zydis ODT 5 mg Tablet PO PRN (16:28)
--- NOTE | 2016-09-30 16:28 | NUR ---
Nurses PRN Patient requested and received PRN Juanita Velazquez by pointing at the words on a piece of paper that said paranoid,will assess response.
--- NOTE | 2016-09-30 17:55 | NUR ---
Obs Dayshift Pt spent the entire day pacing the hallway, sits in the dining room for short periods of time to eat meals or a snack. Pt continues to use hand gestures to communicate and refusing to speak. Pt has poor eye contact, head down. Pt did attend community meeting and used his hands to rate his mood, but did not answer for a goal for the day. Pt is not participating in any other groups. Ok/poor ADL's, Good meals
--- NOTE | 2016-10-01 02:31 | NUR ---
Observations 1900 to 0700 Pt affect is flat. Pt spent the evening out in the DR and the hallway but isolated to himself for the most part. Pt's and Dad visited again last night. Pt fell asleep earlier than usual. Pt first fell asleep at 22:30 and was observed every 15 minutes through the night as directed.
--- NOTE | 2016-10-01 05:23 | NUR ---
Nursing Note - gear straightener 11pm to 7am Pt slept through the night uninterrupted. In no acute distress. Monitoring q 15 for safety, location and accountability ongoing.
[2016-10-01] MEDS: OLANZapine Zydis ODT 5 mg Tablet PO SCH ×3 (08:14→20:22)
[2016-10-01] MEDS: Divalproex Sprinkles 125 mg ER12 Capsule PO SCH ×2 (08:14→20:24)
[2016-10-01] MEDS: LORazepam 1 mg Tablet PO SCH ×4 (08:25→21:02)
--- NOTE | 2016-10-01 14:14 | NUR ---
Nursing Note [id number] Behavior S/O: Pt out in milieu pacing halls most of the day. Pt refused breakfast, but ate 75% of lunch. Pt took all medications except Ativan. He uses gestures to communicate. No verbal communication heard on unit. Pt's affect is flat. No smiles of other signs of pleasure. A: Pt appears to be responding to internal stimuli. P: Provide supportive environment. Monitor medications & effects.
--- NOTE | 2016-10-01 15:45 | NUR ---
Obs Dayshift Pt continues to pace the jackson, poor eye contact, not responding. Pt did eat approx 75% of lunch today. Poor ADL's. Is doing some communicating using hand gestures. Little to no change.
--- NOTE | 2016-10-01 19:12 | NUR ---
Counseling/Management Consultant: S/O: Patient slept 7.5+ hours last night per staff. He denies S/I and H/I. He endorses auditory hallucinations. He denies visual hallucinations. Depression is 6/10 and anxiety is 7/10. A: Patient is cooperative, paranoid, thought blocking, blunted affect, anxious, depressed, limited insight, limited judgment. P: Follow care plan, coordinate out-patient providers, monitor behavior.
[2016-10-01 19:27] LABS: BASOPHILS % (AUTO) 0.2 % (0-3); EOSINOPHILS % (AUTO) 3.2 % (0-5); Mean Corpuscular Hemoglobin 29.5 pg (27.0-35.0); Mean Corpuscular Volume 87.9 fL (81-100); NEUTROPHILS % (AUTO) 63.5 % (40-74); Platelet Count 339 bil/L (150-400)
--- NOTE | 2016-10-01 22:19 | PCM.PNPSY ---
Subjective Date of Service Oct 01, 2016 Subjective Patient made several audible comments. He reported that he was experiencing, "high anxiety." He also indicated that he was experiencing akathisia. He reported feeling safe and denied seeing anyone outside. He was endorsing paranoia and had asked for PRN Zydis. Patient declining blood draw and had not produced urine sample. No side effect c/o. Sleep: 7.5 hours Appetite: "comes and goes" Suicidal and homicidal ideation: denies Auditory hallucinations: unclear but appears to be trying to listen to see if he is experiencing them or determine what he is hearing Visual hallucinations: denies Other Psychotic Symptoms: thought blocking, appears somewhat improved Anxiety: 12/22, yesterday 07/25 Depression: 11/22, yesterday 07/25 Mental Status Exam Appearance: Unkept Attitude: Cooperative (brief answers, hand signs), Guarded Behavior: Other (pacing on unit) Affect: Blunted Mood: Anxious Thought Process/Associations: Blocking, Other (minimal responses) Speech Production: Muter Speech Rate: Lags/Latency Speech Articulation: Other (minimal, difficult to asses) Thought Content: Other (difficult to assess) Danger to Self/Suicidal Ideati: None Danger to Others: None Delusions: Paranoid (Unclear, but appears so) Hallucinations: Auditory (Endorses), Visual (Denies) Consciousness: Alert Orientation: Person, Situation (limited due to mutism) Memory: Untestable Estimate Intellectual Function: Average Basis for IQ estimate: Educational history, Employment history Attention/Concentration & Cogn: Impaired Insight: Limited Judgement: Limited Mental Health Plan The patient is 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 His urine tox was positive for cocaine although he denies any kind of illicit substance use. He was on two different kinds of benzodiazepines as an outpatient, Klonopin and Ativan for unclear reasons. His family noted a long-term history of generalized anxiety but only one previous episode of presenting as mute for 4-5 days with gradual resolution. On admission, he presented with impaired judgment, severe cognitive impairment, poor insight and coping. In the ER he was willing to communicate by doing thumbs up or thumbs down but would not talk nor write. Following admission, he began refusing to communicate with thumbs up or thumbs down. He appeared highly agitated and anxious and had called 911 from the unit twice and yelled help into the phone. He became agitated and was pacing on the floor screaming incoherently, and was refusing medications and was subsequently detained. Since being detained, he has been initially medication adherent and was denying side effects to current medications. He began refusing medications last week and quickly declined, becoming paranoid and aggressive. Since being placed on chlorpromazine he has exhibited minimal improvement and appears to be experiencing akathisia. He has started asking for PRN Zydis in the last few days. He reported increased anxiety today. He was encouraged to provide a UA, but has not. [place] AXIS I 1. Rule out Schizophrenia chronic paranoid type versus schizoaffective disorder bipolar type 2. Rule out substance induced psychotic disorder 3. Rule out panic disorder. 4. Cocaine use disorder 5. Rule out cognitive/mood disorder secondary to history of TBI AXIS II Defer. AXIS III None. AXIS IV Moderate. AXIS V Current global assessment of functioning equal to 25. Medications Thorazine 100 mg twice a day by mouth or IM with 50mg q4hr PRN aggression/ agitation Olanzapine Zydis 10mg twice daily Lorazepam 1 mg 3 times a day (patient reportedly had been using relatively high amounts of Ativan and Klonopin as an outpatient ) Divalproex 500 mg twice daily Propranolol 20 mg twice daily Lorazepam 1mg q4hr PRN anxiety/agitation Olanzapine 5mg po q6hr PRN paranoia/hallucinations Treatments 1. The patient is admitted to the inpatient unit and will be provided a safe and secure environment. 2. The patient is denying current active suicidality and is not in need of a one-to-one at this time. 3. The patient is encouraged to participate with group and milieu activities. 4. The patient will be seen by the treatment team on a daily basis to assess symptoms, side effects and response to treatment. 5. Continue olanzapine Zydis 10 mg twice daily and add 5mg at lunchtime due to early afternoon paranoia. 6. Recheck VPA level when stable on depakote for 4 days 7. Schedule CBC, CMP, CPK for visiting time as relatives helpful in compliance. 8. Olanzapine Zydis 5 mg every 6 hours PRN paranoia or auditory hallucinations. Patient given a card with request for an indication for one or the other in order to help the team understand his current symptom profile. 9. Discontinue chlorpromazine, 10. Schedule propranolol 10mg po tid for akathisia. 11. Anticipated length of stay is 10-14 days. Marbin Walsh MD Oct 01, 2016 12:47
--- NOTE | 2016-10-01 22:44 | NUR ---
Nurses Note Evening Patient has been walking the hallway with an improved eye contact and at times a range in affect. His appetite has not been good but today he did eat 75% of his lunch with adequate fluids. His father and visited which brightened his mood and also allowed labs to be drawn at their encouragement. Patient refused his HS medications and his was notified and spoke to him and he complied. Patient overall has been improving in mood,affect and spontaneity however remains non-verbal and suspicious of medications. Will maintain q 15min.checks for safety,support and will reinforce benefits of medication compliance. Addendum: 10/01/16 at 5200 by MARIA FERNANDA CONWAY RN Amended: Links added.
--- NOTE | 2016-10-02 04:47 | NUR ---
nursing, nights, 11-7 s/o- has appeared to sleep after 2214 during q 15 minute assessments. a- no apparent distress. p- monitor behavior/emotional state, quality, times and amount of sleep, use and effect of medication. dea
--- NOTE | 2016-10-02 05:14 | NUR ---
Noc Observations Pt walking unit some in evening. When staff was stocking cupboard he tried to assist with door opening on cupboard. Pt had better eye contact and responded with thumbs up and down to staff. Asleep at 2215. Pt observed every 15 minutes as ordered.
[2016-10-02] MEDS: LORazepam 1 mg Tablet PO SCH ×3 (08:35→21:06)
[2016-10-02] MEDS: OLANZapine Zydis ODT 5 mg Tablet PO SCH ×3 (08:36→21:06)
[2016-10-02] MEDS: Divalproex Sprinkles 125 mg ER12 Capsule PO SCH ×2 (08:36→21:07)
[2016-10-02 10:49] VITALS: BP 117/71; PULSE 87; RESP 15
--- NOTE | 2016-10-02 11:47 | NUR ---
Nursing Note [id number] Behavior S/O: Pt ate 75% of breakfast. VS stable. Pt took all of am medications. Pt con't to use gestures instead of words to communicate with. When asked how he felt today pt used a hand gesture meaning "so-so." When asked if he was feeling better than yesterday, he gave a thumbs up sign. Affect is blunted. Pt appears tired. Encouraged pt to drink more fluids. Pt pacing halls most of the day. A: Pt con't to appear to respond to internal stimuli. P: Provide supportive environment. Monitor medications & effects.
--- NOTE | 2016-10-02 16:11 | PCM.PNPSY ---
Subjective Date of Service Oct 02, 2016 Subjective Patient made several audible comments. He reported that he was feeling, " pretty good." He also indicated that he was still experiencing akathisia, but was decreased and rated as 6-7/10. He reported feeling safe and denied seeing anyone outside, but did feel watched by others and thought that others could hear his thoughts/know what he was thinking. Patient agreed to blood draw. No side effect c/o. Sleep: 7.5 hours Appetite: "pretty good" Suicidal and homicidal ideation: denies Auditory hallucinations: "so-so" last heard around breakfast time Visual hallucinations: denies Other Psychotic Symptoms: thought blocking, telepathy, feeling followed Anxiety: 12/22, yesterday 12/22 Depression: 08/22, yesterday 11/22 Current Medications Current Medications Olanzapine 5 mg DAILYWL PO Last administered on 10/02/16 12:16; Admin Dose 5 MG ; Start 10/01/16 at 12:00 Propranolol HCl 10 mg TID PO Last administered on 10/02/16 15:01; Admin Dose 10 MG; Start 10/01/16 at 14:30 Mental Status Exam Appearance: Unkept Attitude: Cooperative (brief answers, but more talkative than yesterday, hand signs), Guarded Behavior: Other (pacing on unit, but decreased, sitting to read.) Affect: Blunted Mood: Anxious Thought Process/Associations: Blocking, Other (minimal responses) Speech Production: Muter Speech Rate: Lags/Latency Speech Articulation: Other (minimal, difficult to asses) Thought Content: Other (difficult to assess) Danger to Self/Suicidal Ideati: None Danger to Others: None Delusions: Paranoid (Endorses) Hallucinations: Auditory (Endorses), Visual (Denies) Consciousness: Alert Orientation: Person, Situation (limited due to mutism) Memory: Untestable Estimate Intellectual Function: Average Basis for IQ estimate: Educational history, Employment history Attention/Concentration & Cogn: Impaired Insight: Limited Judgement: Limited Result Diagram: 10/01/16190910/01/161909 Mental Health Plan The patient is 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 His urine tox was positive for cocaine although he denies any kind of illicit substance use. He was on two different kinds of benzodiazepines as an outpatient, Klonopin and Ativan for unclear reasons. His family noted a long-term history of generalized anxiety but only one previous episode of presenting as mute for 4-5 days with gradual resolution. On admission, he presented with impaired judgment, severe cognitive impairment, poor insight and coping. In the ER he was willing to communicate by doing thumbs up or thumbs down but would not talk nor write. Following admission, he began refusing to communicate with thumbs up or thumbs down. He appeared highly agitated and anxious and had called 911 from the unit twice and yelled help into the phone. He became agitated and was pacing on the floor screaming incoherently, and was refusing medications and was subsequently detained. Since being detained, he has been initially medication adherent and was denying side effects to current medications. He began refusing medications last week and quickly declined, becoming paranoid and aggressive. The patient appears more fluid today with more arm swing and decreased pacing. More spoken words today, but still minimal. Endorsed believing that everyone was following him and could hear his thoughts. CPK mildly elevated, encouraged to drink fluids. [place] AXIS I 1. Rule out Schizophrenia chronic paranoid type versus schizoaffective disorder bipolar type 2. Rule out substance induced psychotic disorder 3. Rule out panic disorder. 4. Cocaine use disorder 5. Rule out cognitive/mood disorder secondary to history of TBI AXIS II Defer. AXIS III None. AXIS IV Moderate. AXIS V Current global assessment of functioning equal to 25. Medications Olanzapine Zydis 10mg twice daily + 5mg at lunchtime Lorazepam 1 mg 3 times a day (patient reportedly had been using relatively high amounts of Ativan and Klonopin as an outpatient ) Divalproex 500 mg twice daily Propranolol 10 mg three times a day Lorazepam 1mg q4hr PRN anxiety/agitation Olanzapine 5mg po q6hr PRN paranoia/hallucinations Treatments 1. The patient is admitted to the inpatient unit and will be provided a safe and secure environment. 2. The patient is denying current active suicidality and is not in need of a one-to-one at this time. 3. The patient is encouraged to participate with group and milieu activities. 4. The patient will be seen by the treatment team on a daily basis to assess symptoms, side effects and response to treatment. 5. Continue olanzapine Zydis 10 mg twice daily and add 5mg at lunchtime due to early afternoon paranoia. 6. Recheck VPA level when stable on depakote for 4 days 7. Olanzapine Zydis 5 mg every 6 hours PRN paranoia or auditory hallucinations. Patient given a card with request for an indication for one or the other in order to help the team understand his current symptom profile. 8. Anticipated length of stay is 10-14 days. Marbin Walsh MD Oct 02, 2016 16:11 9. Discontinue chlorpromazine, 10. Schedule propranolol 10mg po tid for akathisia. 11. Anticipated length of stay is 10-14 days. Marbin Walsh MD Oct 02, 2016 16:11
--- NOTE | 2016-10-02 20:03 | NUR ---
Observations 0900 to 2130 Pt affect and mood was flat, blunted and quiet. Pt eye contact was better. Pt continues to use hand gestures and nods head to answer questions. Pt attended meals in D.R. and ate about 60-70% of his meals. Pt maintained behavior throughout the shift. Pt was polite and cooperative. Pt maintained behavior throughout the shift. Pt walked hallway and sat quietly in D.R. Pt was observed reading a book. Pt visited with and Dad and it appeared to go well. Pt was observed every 15 minutes throughout the shift as ordered.
--- NOTE | 2016-10-02 22:56 | NUR ---
Nurses Note Evening Patient has been quiet on the periphery of the unit without interaction with others. His affect remains blunted but his mood is slightly improved with good eye contact and occasional grins. His appetite and sleep patterns are undisturbed,he remains somewhat disheveled. Today patient was walking with a book in the jackson with eye glasses on and smiled when complimented. He was verbal with his and father at visiting and spoke at the medication window [facility] which was a first. Will continue to offer support,encouragement to remain medication compliant reinforcing the benefits,alert to side effects. Addendum: 10/02/16 at 2301 by MARIA FERNANDA CONWAY RN Amended: Links added.
--- NOTE | 2016-10-03 04:10 | NUR ---
OBSERVATIONS 1900 TO 0700 From start of shift to 1999 pt was visiting with and father, visit appeared to go well. Pt paced the unit, sat in the dining room and read, and watched some TV. Pt remains mostly nonverbal but did respond with facial expressions, gestures, and even a faint verbal "no." Pt participated in evening wrap up group rating his day 11/22 and his mood 10/22. Pt then retired to his room where he rested and read for a while before going to sleep at 2300. Pt slept through the night. Maintained Q15 checks for safety as directed.
--- NOTE | 2016-10-03 04:32 | NUR ---
nursing, nights, 11-7 s/o- has appeared to sleep after 2300 during q 15 minute assessments. a- no apparent distress. p- monitor behavior/emotional state, quality, times and amount of sleep, use and effect of medication. dea Addendum: 10/03/16 at 0448 by EMILIANO PATTERSON RN Nursing Noc. Pt reports akathisia like symptoms. Labs ordered for today when family available for ease of obtaining. Pt noted to be sitting and watching TV most of the evening.
[2016-10-03] MEDS: OLANZapine Zydis ODT 5 mg Tablet PO SCH (08:02)
[2016-10-03] MEDS: Divalproex Sprinkles 125 mg ER12 Capsule PO SCH (08:04)
[2016-10-03] MEDS: LORazepam 1 mg Tablet PO SCH ×3 (08:05→19:55)
[2016-10-03 09:25] VITALS: BP 122/78; PULSE 84; RESP 16
[2016-10-03 09:30] LABS: BASOPHILS % (AUTO) 0.5 % (0-3); EOSINOPHILS % (AUTO) 3.8 % (0-5); MONOCYTES % (AUTO) 12.9 % (4-12); Mean Corpuscular Hemoglobin 30.1 pg (27.0-35.0); Mean Corpuscular Volume 87.5 fL (81-100); NEUTROPHILS % (AUTO) 57.8 % (40-74); Platelet Count 363 bil/L (150-400)
--- NOTE | 2016-10-03 13:49 | NUR ---
Nursing: Day shift: S/O:[place] continues to only communicate with this adjusto writer operator using hand signals. With this means of communication he responded to Anxiety : so so, Depression so so. Suicidal: No. He paces in the jackson. Gait is normal without stiffness as earlier. He smiled when adjusto writer operator stated he seemed to be feeling better. Pt was self-directed in that he got a pack of cards and sat playing them at a table in the dining room. Nods to peers when introduced. Not having blank facial expression as earlier in admission. A: Improving in interactions with peers and staff. P: Continue to medicate as ordered. To assess for side and therapeutic effects of current medications.
--- NOTE | 2016-10-03 19:48 | NUR ---
Observations 0900 to 2130 Pt affect and mood was flat, blunted and quiet. Pt eye contact was better. Pt continues to use hand gestures and nods head to answer questions. Pt attended meals in D.R. and ate about 60-70% of his meals. Pt maintained behavior throughout the shift. Pt was polite and cooperative. Pt maintained behavior throughout the shift. Pt walked hallway and sat quietly in D.R. Pt was observed reading a book and playing cards by himself. Pt visited with and his Dad and it appeared to go well. Pt was observed every 15 minutes throughout the shift as ordered.
--- NOTE | 2016-10-03 21:29 | NUR ---
Counseling/Aquatic Habitat Biologist: S/O: Patient slept 6 hours again last night per staff. He denies S/I and H/I. Patient paces the hallway all day. A: Patient is unkept, blunted affect, anxious, mute, paranoid, irritable, limited insight, limited judgment. P: Follow care plan, coordinate out-patient providers, monitor behavior.
--- NOTE | 2016-10-03 22:35 | PCM.PNPSY ---
Subjective Date of Service Oct 03, 2016 Subjective Patient made several audible comments and states that his mood is "good" today. He also indicated that he was still experiencing akathisia, but was decreased and would like increase in propranolol. He reported feeling safe and denied seeing anyone outside, but did feel watched by others and thought that others could hear his thoughts/know what he was thinking. Patient agreed to blood draw. VPA level 37. No side effect c/o. Sleep: 6+ hours Appetite: "better" Suicidal and homicidal ideation: denies Auditory hallucinations: denies x 2 days Visual hallucinations: denies Other Psychotic Symptoms: thought blocking, telepathy, feeling followed Anxiety: 11/22, yesterday 12/22 Depression: 09/22, yesterday 08/22 Current Medications Current Medications Olanzapine 5 mg DAILYWL PO Last administered on 10/03/16 12:45; Admin Dose 5 MG ; Start 10/03/16 at 12:00 Olanzapine 10 mg BID PO Last administered on 10/03/16 08:32; Admin Dose 5 MG; Start 10/03/16 at 08:30 Mental Status Exam Vital Signs Vital Signs Date Time Temp Pulse Resp B/P Pulse Ox O2 Delivery O2 Flow Rate FiO2 10/03/16 09:25 36.0 84 16 122/78 Appearance: Unkept Attitude: Cooperative (brief answers, hand signs), Guarded Behavior: Other (pacing on unit, but decreased, sitting to read.) Affect: Blunted Mood: Anxious Thought Process/Associations: Blocking, Other (minimal responses) Speech Production: Muter Speech Rate: Lags/Latency Speech Articulation: Other (minimal, difficult to asses) Thought Content: Other (difficult to assess) Danger to Self/Suicidal Ideati: None Danger to Others: None Delusions: Paranoid (Endorses) Hallucinations: Auditory (Endorses, but none x 1-2 days), Visual (Denies) Consciousness: Alert Orientation: Person, Situation (limited due to mutism) Memory: Untestable Estimate Intellectual Function: Average Basis for IQ estimate: Educational history, Employment history Attention/Concentration & Cogn: Impaired Insight: Limited Judgement: Limited Result Diagram: 10/03/1692210/03/16922 Mental Health Plan The patient is 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 His urine tox was positive for cocaine although he denies any kind of illicit substance use. He was on two different kinds of benzodiazepines as an outpatient, Klonopin and Ativan for unclear reasons. His family noted a long-term history of generalized anxiety but only one previous episode of presenting as mute for 4-5 days with gradual resolution. On admission, he presented with impaired judgment, severe cognitive impairment, poor insight and coping. In the ER he was willing to communicate by doing thumbs up or thumbs down but would not talk nor write. Following admission, he began refusing to communicate with thumbs up or thumbs down. He appeared highly agitated and anxious and had called 911 from the unit twice and yelled help into the phone. He became agitated and was pacing on the floor screaming incoherently, and was refusing medications and was subsequently detained. Since being detained, he has been initially medication adherent and was denying side effects to current medications. He began refusing medications last week and quickly declined, becoming paranoid and aggressive. The patient appears more fluid today with more arm swing and decreased pacing. More spoken words today, but still minimal. Endorsed believing that everyone was following him and could hear his thoughts. He denied auditory hallucinations for the last 1- 2 days. [place] AXIS I 1. Rule out Schizophrenia chronic paranoid type versus schizoaffective disorder bipolar type 2. Rule out substance induced psychotic disorder 3. Rule out panic disorder. 4. Cocaine use disorder 5. Rule out cognitive/mood disorder secondary to history of TBI AXIS II Defer. AXIS III None. AXIS IV Moderate. AXIS V Current global assessment of functioning equal to 30. Medications Olanzapine Zydis 10mg twice daily + 5mg at lunchtime Lorazepam 1 mg 3 times a day (patient reportedly had been using relatively high amounts of Ativan and Klonopin as an outpatient ) Divalproex 500 mg twice daily Propranolol 10 mg three times a day Lorazepam 1mg q4hr PRN anxiety/agitation Olanzapine 5mg po q6hr PRN paranoia/hallucinations Treatments 1. The patient is admitted to the inpatient unit and will be provided a safe and secure environment. 2. The patient is denying current active suicidality and is not in need of a one-to-one at this time. 3. The patient is encouraged to participate with group and milieu activities. 4. The patient will be seen by the treatment team on a daily basis to assess symptoms, side effects and response to treatment. 5. Continue olanzapine Zydis 10 mg twice daily and add 5mg at lunchtime due to early afternoon paranoia. 6. Increase Depakote to 500mg daily and 1000mg nightly. 7. Increase propranolol to 20mg po tid. 8. Recheck VPA level and CMP on 10/07/16 9. Olanzapine Zydis 5 mg every 6 hours PRN paranoia or auditory hallucinations. Patient given a card with request for an indication for one or the other in order to help the team understand his current symptom profile. 10. Anticipated length of stay is 10-14 days. Marbin Walsh MD Oct 03, 2016 17:11
--- NOTE | 2016-10-04 05:27 | NUR ---
Nursing Noc Pt ambulated around unit appearing more relaxed in gait and demeanor. Increasing eye contact and noted to use one or two word responses when verbally approached. Pt noted to be engaged in conversation during visiting with friends Taking medication as prescribed. Continuing to monitor mood behavior emotional state. CP
[2016-10-04] MEDS: LORazepam 1 mg Tablet PO SCH ×3 (07:55→20:01)
[2016-10-04 09:30] VITALS: BP 97/67; PULSE 77; RESP 16
--- NOTE | 2016-10-04 10:08 | NUR ---
Nursing Day Shift- S- "Can I take the Ativan later?" O- Pt. appeared asleep at the start of the shift. He awoke for breakfast and slowly walked in the hallway in [facility]. Pt. came to the medication room without being asked, took his scheduled medications, and verbalized in a soft, flat whispered tone. He did take the Ativan with encouragement. He eat 100%. Pt. nodded yes to feeling better, but ignored other questions. A- First verbalization. Pt. was observed walking with his eyes half closed at 0930. He denied any problems or concerns. Cont. to appear flat and preoccupied/ worried. P- Cont. BHTP
--- NOTE | 2016-10-04 13:12 | PCM.PNPSY ---
Subjective Date of Service Oct 04, 2016 Subjective The patient is more visible in the day area, was reading the stock market information when asked to come for interview. Patient used more words than gestures during this interview. He reported his mood as 8/10 good and states, "overall still very anxious" but only rates his anxiety as 4/10. He was concerned about doing only daily Depakote as his racing thoughts are only 2/10. He reports the akathisia is improved. He reports his concerns about thought reading/control are "better every day." Patient was noted to doze off in day area while reading. No side effect c/o. Sleep: 8+ hours Appetite: "good" Suicidal and homicidal ideation: denies Auditory hallucinations: denies x 3-4 days Visual hallucinations: denies Other Psychotic Symptoms: thought blocking, telepathy, feeling followed, all decreased Anxiety: 09/22, yesterday 610 Depression: 08/22, yesterday 09/22 Current Medications Current Medications Divalproex Sodium 500 mg DAILY PO Last administered on 10/04/16 07:54; Admin Dose 500 MG; Start 10/04/16 at 08:30 Divalproex Sodium 1,000 mg HS PO Last administered on 10/03/16 19:55; Admin Dose 1,000 MG; Start 10/03/16 at 21:00 Olanzapine 5 mg DAILYWL PO Last administered on 10/04/16 12:11; Admin Dose 5 MG ; Start 10/03/16 at 12:00 Olanzapine 10 mg BID PO Last administered on 10/04/16 07:54; Admin Dose 10 MG; Start 10/03/16 at 08:30 Propranolol HCl 20 mg TID PO Last administered on 10/04/16 07:55; Admin Dose 20 MG; Start 10/03/16 at 20:30 Mental Status Exam Vital Signs Vital Signs Date Time Temp Pulse Resp B/P Pulse Ox O2 Delivery O2 Flow Rate FiO2 10/04/16 09:30 36.5 77 16 97/67 Appearance: Unkept Attitude: Cooperative (brief answers, hand signs), Guarded Behavior: Other (pacing on unit, but decreased, sitting to read.) Affect: Restricted (occasional smiles) Mood: Anxious Thought Process/Associations: Blocking, Other (minimal responses) Speech Production: Paucity Speech Rate: Lags/Latency Speech Articulation: Normal Thought Content: Suspicious Danger to Self/Suicidal Ideati: None Danger to Others: None Delusions: Paranoid (Endorses) Hallucinations: Auditory (Denies), Visual (Denies) Consciousness: Alert Orientation: Person, Place, Situation Memory: Untestable Estimate Intellectual Function: Average Basis for IQ estimate: Word use/vocabulary, Educational history, Employment history Attention/Concentration & Cogn: Impaired Insight: Limited Judgement: Limited Result Diagram: 10/03/16 0923 10/03/1623 Mental Health Plan The patient is 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 His urine tox was positive for cocaine although he denies any kind of illicit substance use. He was on two different kinds of benzodiazepines as an outpatient, Klonopin and Ativan for unclear reasons. His family noted a long-term history of generalized anxiety but only one previous episode of presenting as mute for 4-5 days with gradual resolution. On admission, he presented with impaired judgment, severe cognitive impairment, poor insight and coping. In the ER he was willing to communicate by doing thumbs up or thumbs down but would not talk nor write. Following admission, he began refusing to communicate with thumbs up or thumbs down. He appeared highly agitated and anxious and had called 911 from the unit twice and yelled help into the phone. He became agitated and was pacing on the floor screaming incoherently, and was refusing medications and was subsequently detained. Since being detained, he has been initially medication adherent and was denying side effects to current medications. He began refusing medications last week and quickly declined, becoming paranoid and aggressive. The patient appears more fluid today with more arm swing and decreased pacing. More words spoken today than hand signs used. Endorsed believing that everyone was following him and could hear his thoughts but states it is better every day. Declined once daily depakote (2000mg) He denied auditory hallucinations for the last 3-4 days. [place] AXIS I 1. Rule out Schizophrenia chronic paranoid type versus schizoaffective disorder bipolar type 2. Rule out substance induced psychotic disorder 3. Rule out panic disorder. 4. Cocaine use disorder 5. Rule out cognitive/mood disorder secondary to history of TBI AXIS II Defer. AXIS III None. AXIS IV Moderate. AXIS V Current global assessment of functioning equal to 30. Medications Olanzapine Zydis 10mg twice daily + 5mg at lunchtime Lorazepam 1 mg 3 times a day (patient reportedly had been using relatively high amounts of Ativan and Klonopin as an outpatient ) Divalproex 500 mg daily 1000mg nightly Propranolol 20 mg three times a day Lorazepam 1mg q4hr PRN anxiety/agitation Olanzapine 5mg po q6hr PRN paranoia/hallucinations Treatments 1. The patient is admitted to the inpatient unit and will be provided a safe and secure environment. 2. The patient is denying current active suicidality and is not in need of a one-to-one at this time. 3. The patient is encouraged to participate with group and milieu activities. 4. The patient will be seen by the treatment team on a daily basis to assess symptoms, side effects and response to treatment. 5. Continue current medications. 6. Consider switching to QHS daily Depakote 2000mg if patient agrees. 7. Recheck VPA level and CMP on 10/07/16 8. Anticipated length of stay is 10-14 days. Marbin Walsh MD Oct 04, 2016 13:12 10. Anticipated length of stay is 10-14 days. Marbin Walsh MD Oct 04, 2016 13:12
--- NOTE | 2016-10-04 15:53 | NUR ---
Sales Manager Prearranged Funerals./ c.m. S.:"I'm feeling better." O.: met with pt. and MD together. Pt. "slept good" last night. He denied SI/HI, denied AH/VH. He said that "paranoia is decreasing every day". He liked his meds and he said that meds were working well for him. He agreed to reduce a dose of Ativan. He said that he "still very anxious but mood is overall at 8/10." He rated depression at 3/10 and anxiety at 4/10. His restlessness was "much better". He was reading a newspaper early in the morning and he was able to focus on his reading. He rated racing thoughts at 2/10 at that time. He was in and out of his room walking in a jackson or sitting by himself in a Dining room. A.: pt. is cooperative, pleasant, isolative, looks internally preoccupied, has a flat affect. P.: monitor behavior, encourage pt. to talk, monitor meds intake; follow care plan.
--- NOTE | 2016-10-04 16:33 | NUR ---
Day Shift Observations Pt has been out on the unit most of the day, walking the hallways. Pt attended community meeting and didn't speak, but I was able to ascertain, through questions and his hand gestures, that his goal for today was to 'have an ok day' and he used his fingers to rate his mood 12/22. Pt ate about 90% of breakfast and lunch and has spent the rest of day wandering about the unit. Pt has been monitored every 15 minutes as directed.
--- NOTE | 2016-10-04 22:21 | NUR ---
NURSING NOTE [id number] Mood: *gestures so-so with hand* Affect: flat, guarded Behavior: slowly pacing the halls w/a book in hand, his and father visited, using hand gestures to communicate and not speaking in words to this financial underwriter Thought processes: pt. reported, by way of nodding and/or shaking his head that: his anxiety has improved each day, denies depression, denies SI/HI, denies AH/VH. Declined offer of PRN for anxiety. PRNs Ofeien 5 mg @ HS
--- NOTE | 2016-10-05 06:05 | NUR ---
Sleep 11p-7a Adequate sleep through the night with no noted distress or awakening per protocol checks. Total sleep 8+ hours.
[2016-10-05] MEDS: LORazepam 1 mg Tablet PO SCH ×2 (08:30→20:50)
[2016-10-05 09:10] VITALS: BP 110/70; PULSE 83; RESP 16
[2016-10-05] MEDS ORDERED: Divalproex (QD) 500 mg ER24 Tablet PO ONE (10:15)
[2016-10-05] MEDS ORDERED: DIVALPROEX PO ONE ×2 (10:30)
--- NOTE | 2016-10-05 12:01 | NUR ---
Child Care Lead Teacher./ c.m. S.:"I'm good." O.: met with pt. and MD together in a private room. Pt. slept "good" last night. He didn't feel as good today as yesterday because of racing thoughts. He said that he has more racing thoughts in the morning than in the other time of the day. MD discussed with pt. different options of medication intake during a day. Pt. is eating "good". He denied SI/HI, denied AH/VH. He said that paranoid thoughts were "better today". He rated depression at 4/10 and anxiety at 6/10 because he "just want to go home." He had a good visit with his and his father yesterday. He was walking a lot in a jackson since senior information developer. He doesn't talk to peers. A.: pt. is cooperative, isolative, quiet. He is speaking with a lot of encouragement. P.: monitor behavior, encourage pt. to speak more, monitor meds intake, follow care plan.
--- NOTE | 2016-10-05 12:03 | NUR ---
Nursing Day Shift- S- (Pt. would only use his hands and head to communicate today.) O- Pt. appeared asleep at the start of the day shift. He was awake and dressed for breakfast. He would only shake no to scheduled Ativan. He gestured with his hand for not doing so well. He requested the Ativan he had refused at 0900. Pt. denied thoughts of harming himself or others. A- Less interactive then yesterday. Pt. nodded that increased Depakote dose had been helpful. Slowly walking the jackson most of the shift. P- Cont. BHTP.
--- NOTE | 2016-10-05 13:28 | PCM.PNPSY ---
Subjective Date of Service Oct 05, 2016 Subjective The patient reported increased racing thoughts today. He also indicated that he is concerned about others reading his thoughts and following him, but he has not had auditory hallucinations or seen anyone follow him in some days. The patient reports that his urine is clear and he is drinking 6 glasses of water per day. He reports the akathisia is improved. He reports his concerns about thought reading/control continue to be "better every day." Patient less drowsy. Patient had good family visit. No side effect c/o. Sleep: 8+ hours Appetite: "good" Suicidal and homicidal ideation: denies Auditory hallucinations: denies x 4+ days Visual hallucinations: denies x several days Other Psychotic Symptoms: thought blocking, telepathy, feeling followed, all decreased Anxiety: 11/22, yesterday 09/22 Depression: 09/22, yesterday 08/22 Current Medications Current Medications Divalproex Sodium 500 mg DAILY PO Last administered on 10/05/16 08:05; Admin Dose 500 MG; Start 10/04/16 at 08:30; Stop 10/05/16 at 10:13; Status DC Divalproex Sodium 1,000 mg HS PO Last administered on 10/04/16 20:01; Admin Dose 1,000 MG; Start 10/03/16 at 21:00; Stop 10/05/16 at 10:13; Status DC Divalproex Sodium/ Divalproex Sodium 1,250 mg OT ONCE PO Last administered on 10:33; Admin Dose 1,250 MG; Start 10/05/16 at 10:30; Stop 10/05/16 at 10:31; Status DC Propranolol HCl 20 mg TID PO Last administered on 10/05/16 08:05; Admin Dose 20 MG; Start 10/03/16 at 20:30 Mental Status Exam Appearance: Unkept Attitude: Cooperative (brief answers, hand signs), Guarded Behavior: Other (pacing on unit, but decreased, sitting to read.) Affect: Restricted (occasional smiles) Mood: Anxious Thought Process/Associations: Blocking, Other (minimal responses) Speech Production: Paucity Speech Rate: Lags/Latency Speech Articulation: Normal Thought Content: Suspicious Danger to Self/Suicidal Ideati: None Danger to Others: None Delusions: Paranoid (Endorses) Hallucinations: Auditory (Denies), Visual (Denies) Consciousness: Alert Orientation: Person, Place, Situation Memory: Untestable Estimate Intellectual Function: Average Basis for IQ estimate: Word use/vocabulary, Educational history, Employment history Attention/Concentration & Cogn: Impaired Insight: Limited Judgement: Limited Result Diagram: 10/03/1623 10/03/1623 Mental Health Plan The patient is 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 His urine tox was positive for cocaine although he denies any kind of illicit substance use. He was on two different kinds of benzodiazepines as an outpatient, Klonopin and Ativan for unclear reasons. His family noted a long-term history of generalized anxiety but only one previous episode of presenting as mute for 4-5 days with gradual resolution. On admission, he presented with impaired judgment, severe cognitive impairment, poor insight and coping. In the ER he was willing to communicate by doing thumbs up or thumbs down but would not talk nor write. Following admission, he began refusing to communicate with thumbs up or thumbs down. He appeared highly agitated and anxious and had called 911 from the unit twice and yelled help into the phone. He became agitated and was pacing on the floor screaming incoherently, and was refusing medications and was subsequently detained. Since being detained, he has been initially medication adherent and was denying side effects to current medications. He began refusing medications last week and quickly declined, becoming paranoid and aggressive. The patient appears more fluid today with more arm swing and decreased pacing. Patient initially used hand signs but spoke with little encouragement. Endorsed believing that everyone was following him and could hear his thoughts but states it is better every day. Agreed to once daily Depakote, received supplemental 1250mg and reported effective, requesting once daily depakote (2000mg), He continues to deny auditory or visual hallucinations. [place] AXIS I 1. Rule out Schizophrenia chronic paranoid type versus schizoaffective disorder bipolar type 2. Rule out substance induced psychotic disorder 3. Rule out panic disorder. 4. Cocaine use disorder 5. Rule out cognitive/mood disorder secondary to history of TBI AXIS II Defer. AXIS III None. AXIS IV Moderate. AXIS V Current global assessment of functioning equal to 30. Medications Olanzapine Zydis 10mg twice daily + 5mg at lunchtime Lorazepam 1 mg 3 times a day (patient reportedly had been using relatively high amounts of Ativan and Klonopin as an outpatient ) Divalproex (QD) 2000mg daily Propranolol 20 mg three times a day Lorazepam 1mg q4hr PRN anxiety/agitation Olanzapine 5mg po q6hr PRN paranoia/hallucinations Treatments 1. The patient is admitted to the inpatient unit and will be provided a safe and secure environment. 2. The patient is denying current active suicidality and is not in need of a one-to-one at this time. 3. The patient is encouraged to participate with group and milieu activities. 4. The patient will be seen by the treatment team on a daily basis to assess symptoms, side effects and response to treatment. 5. Continue current medications. 6. Switch to Depakote (QD) 2000mg. 7. Decrease lorazepam to 1mg twice daily 8. Recheck VPA level and CMP on 10/07/16 9. Anticipated length of stay is 10-14 days. Marbin Walsh MD Oct 05, 2016 13:28
--- NOTE | 2016-10-05 18:10 | NUR ---
[facility] Day Shift Pt maintained behavioral control throughout the shift. Pt affect appears flat. Pt continues to spend most of the shift pacing the unit and attempting to rest in his room. Pt remains noncommunicative with staff, choosing to use hand gestures and head nods/shakes to convey affirmative/negative responses. Pt attended community meeting in the AM, but did not attend any group activities. Pt attended all meals and ate approx 80% of all meals.
[2016-10-05] MEDS: LORazepam 1 mg Tablet PO PRN (18:54)
--- NOTE | 2016-10-05 21:00 | NUR ---
NURSING NOTE [id number] Mood: *shrug* then *so-so motion with hand* Affect: restricted Behavior: slowly pacing the halls for much of the shift. His and father visited. At several points during the shift he uttered full sentences to staff but would also revert to communication via hand gestures. He approached this physician underwriter to ask for an anxiety PRN but could not articulate what had made him anxious or rate the anxiety. Thought processes: denies AH/VH/SI/HI but at times appears internally preoccupied. PRNs 1 mg Ativan @ 18:55 Ambien 5 mg @ HS
--- NOTE | 2016-10-06 05:20 | NUR ---
Nursing Note Hearing Aid Fitter 11pm to 7am Pt in bed at start of shift. Slept uninterrupted throughout the night. In no acute distress. Monitored pt with q 15 minute face checks for safety, location and accountability.
[2016-10-06] MEDS: Divalproex (QD) 500 mg ER24 Tablet PO SCH (08:24)
[2016-10-06 09:05] VITALS: BP 112/71; PULSE 73; RESP 15
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
[2016-10-06] MEDS: LORazepam 1 mg Tablet PO SCH ×2 (12:46→20:52)
--- NOTE | 2016-10-06 12:49 | NUR ---
Nursing: Day shift and discharge. S: I am feeling better. Don't have anxiety. It (the group Jimmy attended this morning) was good. O: Jimmy is out on the open unit most of the day. He attended and participated verbally in the a.m. group. He sits at a table near a peer and leafs through a book looking up periodically toward her as she speaks. Definitely more interactive with peers than earlier in admission when he sat on the periphery or in his room, staring ahead, with no verbal response to any question asked. Makes good eye contact as he responds verbally.Verbal responses are short and with very quiet tone but understandable. Denied any auditory hallucinations,anxiety and suicidal thoughts. Rated depression at 2/10. Accepts scheduled meds as offered without reluctance. A: Improved r/t verbal response, med compliance, and engagement in unit activities. P: Continue to observe for effectiveness of med. regimen. Addendum: 10/06/16 at 1316 by LESLIE BRANCH RN Correction: In the above note, the worda "and discharge" are not pertaining to the patient, Slade Peraza.
--- NOTE | 2016-10-06 12:55 | NUR ---
Nursing Note [id number] Behavior, Mood S/O: Pt has good appetite. Pt able to use words to communicate with as well as using gestures. Pt rated his mood at a "3" on a scale of 1-10/10 the worst. He rated his anxiety at a "3." He denies audio hallucinations. Full affect. Conversation tracking clear & organized with quiet manner & slow responses. Pt attended groups today & participated in both groups. A: Pt improving from last week. Thinking appears to be clearing. P: Provide supportive environment. Monitor medications & effects.
--- NOTE | 2016-10-06 14:05 | NUR ---
Venereal Disease Investigator./ c.m. S.:"I'm feeling good today." O.: met with pt. to discuss his progress. He slept well last night. He denied SI/HI, denied racing thoughts. He said that meds were "very helpful". He was able to focus on a word puzzle and to pay attention during a morning group conversation. He denied AH/VH or paranoid/delusional thoughts. He rated depression at 3/10 and anxiety at 3/10 also. He described his thought process at the beginning of his hospitalization. He said that his condition improved on 85% since his admission here and that he is 15% below his baseline. He was able to complete his Safety plan. He "understood" that use of alcohol, mj or other drugs were detrimental to his mental health. He had a good visit with his and his father yesterday. He was wondering about his discharge date. A.: pt. is cooperative, pleasant, has a good eye contact, more active in the program. P.: monitor behavior, court tomorrow, work on follow up options; follow care plan.
[2016-10-06] MEDS: LORazepam 1 mg Tablet PO PRN (16:25)
--- NOTE | 2016-10-06 19:03 | NUR ---
Observations [id number] Pt was asleep upon start of shift. Pt is much more social with staff and peers then observed in previous shifts. Pt appears clearer and attended groups. His family visited in the afternoon. He attended all meals, eating an average of 75%. Pt was observed every 15 minutes of shift as directed.
--- NOTE | 2016-10-06 22:59 | NUR ---
NURSING NOTE [id number] Mood: "I'm having racing thoughts" Affect: internally preoccupied, constricted at times Behavior: pt. slowly pacing the halls up and down for several hrs from start of shift. At 16:00 he approached this inspector automatic typewriter and asked for a PRN; using hand motions, but was able to state in a complete sentence that he was having racing thoughts. Within a half hr of taking Zyprexa 5 mg PRN the pt. motioned w/his hand to this inspector automatic typewriter that he needed more medication and stated "I'm still anxious." 1 mg Ativan PRN given. He later reported it helped by giving thumbs up. Thought processes: Pt. could not describe to this inspector automatic typewriter what his racing thoughts were, but did distinguish that they were not the voice of someone else and that he did not have AH/VH this shift. When asked if he finds he gets more anxious in the afternoons he nodded emphatically. He denied SI. PRNs 16:00 Zyprexa 5 mg 16:25 Ativan 1 mg Ambien 5 mg @ HS
--- NOTE | 2016-10-07 05:15 | NUR ---
Nursing Note- Vending Supervisor 11pm to 7am Pt asleep at start of shift. Remained asleep with no interruptions. In no acute distress. No prns given Monitored pt. with q 15 minute face checks for safety location and accountability
[2016-10-07] MEDS: Divalproex (QD) 500 mg ER24 Tablet PO SCH (08:17)
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
[2016-10-07] MEDS: LORazepam 1 mg Tablet PO SCH ×2 (13:03→21:01)
--- NOTE | 2016-10-07 13:33 | NUR ---
Nursing Note [id number] Behavior S/O: Pt pleasant & cooperative. Conversation tracking clear & appropriate with slightly latent speech. Pt attended & participated in groups. Pt out in milieu & interacts appropriately with peers. Took medications without problems. Paces frequently on unit. A: Pt slowly improving. Pt has more insight. P: Provide supportive environment. Monitor medications & effects.
--- NOTE | 2016-10-07 15:42 | NUR ---
Observations [id number] Pt was asleep upon start of shift. Pt attended all meals, eating an average of 75%. Pt continues to increase communication with staff and other patients. He spent the majority of the day walking the halls, listening to music, and reading. Pt did not attend groups. He was observed every 15 minutes of shift as directed.
--- NOTE | 2016-10-07 18:27 | NUR ---
Counseling/Skin Drier: S: "Yes ma'am" responses during conversation with this commercial lines underwriter. O: Patient slept 8+ hours again last night per staff. He denies S/I and H/I. He denies auditory and visual hallucinations. For depression and anxiety, patient gave hand signal, stating, "a little bit." When asked his mood, patient stated, "A little better." A: Patient is cooperative, pleasant, euthymic, limited insight. P: Follow care plan, coordinate out-patient providers, monitor behavior.
--- NOTE | 2016-10-07 23:10 | NUR ---
NURSING NOTE [id number] Mood: "good" Affect: appears less preoccupied this shift, calm and cooperative Behavior: pacing halls off and on but much less than evenings prior. He watched TV in the DR w/several peers. Presented independently for HS meds. Asked for Ambien PRN at . Did not use any hand gestures to communicate w/this telegraphic typewriter operator chief and instead spoke in full sentences. Thought processes: less anxious this shift per his report. Denied any need for anxiety PRNs. No SI/AH/VH.
--- NOTE | 2016-10-08 06:09 | NUR ---
Sleep 11p-7a Adequate sleep through the night with no noted distress or awakening per protocol checks. Total sleep 7+ hours.
[2016-10-08] MEDS: Divalproex (QD) 500 mg ER24 Tablet PO SCH (08:38)
--- NOTE | 2016-10-08 10:35 | NUR ---
Nursing Day Shift- S- "Much better. Discharge maybe Thursday. Yea..I feel ready." O- Pt. had slept 7 plus hours per report. He was awake for breakfast and eat 100%. His affect appeared brighter and he had improved eye contact from 3 days previous. decreased pacing in the hallway. Pt. denied suicidal thoughts, auditory or visual hallucinations. A- Improved since last seen 3 days ago. P- Cont. BHTP. Plan for court Thursday for possible LRO before discharge.
[2016-10-08] MEDS: LORazepam 1 mg Tablet PO SCH ×3 (12:00→20:41)
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
--- NOTE | 2016-10-08 13:13 | NUR ---
Obs Dayshift Pt is calm, polite, engages with some peers and staff. Much better eye contact, and able to hold a conversation. Pt is spending most of his day out in the milieu, participates in group activities, watches TV or does Art/Drawing and reading in the milieu during free times. Good ADL's, Good meals
--- NOTE | 2016-10-08 19:44 | NUR ---
Counseling/Metal Patternmaker Apprentice: S: "Yes ma'am" responses during conversation with this food writer. O: Patient slept 7 hours again last night per staff. He denies S/I and H/I. He denies auditory and visual hallucinations. Depression is 0/10 and anxiety is 0/10. When asked his mood, patient stated, "Good." A: Patient is cooperative, pleasant, euthymic, improving, bright, fair insight. P: Follow care plan, coordinate out-patient providers.
--- NOTE | 2016-10-08 22:08 | NUR ---
NURS Evening S "I'm doing a lot better." O Pt conversed in full sentences with report writer. Pt's behavior was pleasant and appropriate; up in milieu, reading, watching television. Took scheduled medications and 5 mg Ambien PRN. A Pt is significantly improved since admission. P Continue with medications and behavioral health plan.
--- NOTE | 2016-10-09 05:11 | NUR ---
Nursing Noc Pt noted to be improving yesterday with speaking full sentences, relaxed in milieu, achieving adequate sleep. Continuing to monitor mood behavior and emotional state by Q15 minute safety checks.
[2016-10-09] MEDS: Divalproex (QD) 500 mg ER24 Tablet PO SCH (07:56)
--- NOTE | 2016-10-09 11:37 | NUR ---
Nursing Day Shift- S- "I feel good. No anxiety. I'm not sure. I have a list of triggers. I can't remember them, I have them written down in my room." O- Pt. had slept well per report. He was awake and dressed for breakfast. Pt. denied depression, anxiety, auditory or visual hallucinations. He was unable to identify events that led to hospitalization, or what he would do different after discharge. He did report having a long list of triggers written down. A- Improved since admit. Full affect, speaking in full sentences. Limited insight into events and behavior that led to hospitalization or seclusion. P- Cont. BHTP. Probable discharge after court tomorrow. Addendum: 10/09/16 at 1453 by HARINI SWAIN RN Pt. appeared o fall asleep after taking his noon medications.
[2016-10-09] MEDS: LORazepam 1 mg Tablet PO SCH ×3 (12:00→21:21)
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
--- NOTE | 2016-10-09 18:18 | NUR ---
Obs Dayshift Pt is engaging much better, and participating on the unit. Pt spends his free time watching TV, reading and walking in the [place]. Pt is responsive, calm, polite, smiling and more oriented. Good ADL's, Good meals
--- NOTE | 2016-10-09 19:22 | NUR ---
Counseling/Children'S Service Supervisor: S: "I'm looking forward to going home tomorrow.". O: Patient slept 7+ hours again last night per staff. He denies S/I and H/I. He denies auditory and visual hallucinations. Depression is 0/10 and anxiety is 0/10. When asked his mood, patient stated, "Good." A: Patient is cooperative, pleasant, euthymic, limited insight. P: Follow care plan, coordinate out-patient providers.
--- NOTE | 2016-10-09 23:05 | NUR ---
NURSING NOTE [id number] Mood: "good" Affect: flat Behavior: visible on the unit; watching TV or walking the halls. His visited. Med compliant. Thought processes: logical, linear, looking forward to discharge tomorrow. Speaking in full sentences.
--- NOTE | 2016-10-10 05:25 | NUR ---
nursing, nights, 11-7 s/o- has appeared to sleep after 0030 during q 15 minute assessments. a- loud unit, no apparent distress. p- monitor behavior/emotional state, quality, times and amount of sleep, use and effect of medication. dea
[2016-10-10] MEDS: Divalproex (QD) 500 mg ER24 Tablet PO SCH (08:38)
[2016-10-10 10:27] VITALS: BP 102/66; PULSE 90; RESP 16
[2016-10-10] MEDS ORDERED: PROP20TA5 PO (11:11)
[2016-10-10] MEDS ORDERED: OLAN5TAB PO (11:11)
[2016-10-10] MEDS ORDERED: DIVA500T14 PO (11:11)
--- NOTE | 2016-10-10 11:14 | PCM.DIMED ---
Discharge Instructions Date of Service Oct 10, 2016 Dates of Hospitalization Sep 12, 2016 at 16:12 Discharge Diagnosis Discharge Diagnosis AXIS I 1. Psychotic disorder unspecified Rule out Schizophrenia chronic paranoid type versus schizoaffective disorder bipolar type Rule out substance induced psychotic disorder Rule out panic disorder. 2. History of Cocaine use disorder 3. History of benzodiazepine use disorder 4. History of narcotic use disorder 5. Rule out cognitive/mood disorder secondary to history of TBI AXIS II Defer. AXIS III None. AXIS IV Moderate. AXIS V Current global assessment of functioning equal to 40. Medication Instructions I Strongly encouraged patient to follow up with outpatient care: 1-Recommended patient takes medication as prescribed and not alter this unless under the direct care of a provider: Olanzapine 10 twice a day Depakote 2000 mg at bedtime Propranolol 20 mg 3 times a day 2-Recommend client refrain from recreational drugs and alcohol while taking psychiatric medications. 3-Recommend client start a 12 step program to deal with issues of addiction. 4-Recommend patient attempt to find a therapist or group to deal with impulse control and interpersonal relationship conflicts Diet No restrictions Activity No restrictions Call your provider Fever or Chills Patient Instructions Follow-up plan Follow-up with [facility] in [place] 10/13/2016 9 AM Client to follow up with primary care physician next available appointment. Client to have Depakote level checked in the next 2 weeks. Follow-up with PCP in: 2 weeks Luis Knapp MD Oct 10, 2016 11:14
--- NOTE | 2016-10-10 11:46 | NUR ---
Nursing Discharge- Pt. was discharged at 1140 today as planned, to home. The Pt's father provided transportation. Pt. had slept 6 plus hours last night. He reported feeling positive about discharge and planned to go with his family to dinner tonight. The Pt's prescriptions were faxed to [facility] as he had requested. Pt. expressed an understanding of his discharge instructions, medications, and the terms of his 90 day LRO. He denied depression, anxiety, homicidal thoughts, or hallucinations.
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
--- NOTE | 2016-10-10 18:06 | NUR ---
Counseling/Radiology Physician: S: "I'm going to do a birthday democrat for my son after I discharge." O: Patient slept 5+ hours again last night per staff. He denies S/I and H/I. He denies auditory and visual hallucinations. Depression is 0/10 and anxiety is 0/10. When asked his mood, patient stated, "Happiness." A: Patient is cooperative, pleasant, hopeful, fair insight. P: Follow care plan, coordinate out-patient providers. Addendum: 10/10/16 at 1812 by ARIELLE ESCOBEDO [facility] [place] [facility], [place]/13/16 at 9:00am.
== END 2016-10-10 11:40 | disposition home or self-care (01) | DRG 885 ==
LOC: SED 16:51 → MHC 09-12 16:12
PROVIDERS: ADMIT Psychiatry & Neurology Psychiatry; ATTEND Psychiatry & Neurology Psychiatry
DX: F29 Unspecified psychosis not due to a substance or known physiological condition (principal); F41.9 Anxiety disorder, unspecified; F17.210 Nicotine dependence, cigarettes, uncomplicated; Z87.820 Personal history of traumatic brain injury